=== PATIENT | male | born 1945 | race Caucasian/White ===

== ENCOUNTER → 2017-07-29 13:51 | Outpatient (CLI) | payer MEDICARE, SELFPAY ==
[2017-07-29 16:29] LABS: Prothrombin Time (Protime)PT. 13.6 SECONDS (11.7-14.9)
[2017-07-29 16:30] LABS: Partial Thromboplast Time 30.2 Seconds (24.1-36.2)
[2017-08-06 11:09] LABS: Anti-Cardiolipin Ab, IgG, Qn < 9 GPL U/mL (0-14); Anti-Cardiolipin Ab, IgM, Qn < 9 MPL U/mL (0-12); Antithrombin 3 Function 106 % (75-135); Protein S, Free 77 % (57-157); Protein S, Funtional 101 % (63-140); Protein S, Total 90 % (60-150)
== END ==
PROVIDERS: Family Provider Family Medicine; PCP Family Medicine; Visit Provider Family Medicine
DX: I82.402 Acute embolism and thrombosis of unspecified deep veins of left lower extremity (principal)
CPT/HCPCS: 36415; 81241; 81291; 85300; 85305; 85306; 85610; 85730; 86147

== ENCOUNTER → 2017-10-11 14:28 | Outpatient (CLI) | payer MEDICARE, SELFPAY ==
[2017-10-11 15:26] LABS: Absolute Lymphocyte Count 1.94 X10^3/ul (0.83-4.51); Basophil# 0.04 X10^3/uL; Basophil% 0.4 % (0-1); Eosinophils% 1.1 % (0-5); Hematocrit 53.2 % (40-54); Hemoglobin 17.9 g/dl (13.0-16.5); Lymphocyte # 1.94 X10^3/ul (4.0); Lymphocyte % 20.4 % (19-41); Mean Corp Hgb Conc 33.6 g/gl (32-36); Mean Corpuscular Hgb 30.3 pg (27.0-32.0); Mean Corpuscular Volume 90.2 fL (80-94); Mean Platelet Vol. 10.4 fl (6.2-12.0); Monocyte# 0.43 X10^3/uL; Monocyte% 4.5 % (0-10); Neutrophil # 6.96 X10^3/uL (2.7-7.7); Neutrophil % 73.2 % (47-70); Platelet Count 129 K/mm3 (150-450); RBC Distribution Width CV 14.3 % (11.6-14.6); White Blood Count 9.5 K/mm3 (4.4-11.0)
[2017-10-11 15:39] LABS: POSITIVE COUNT NO; POSITIVE DIFFERENTIAL NO; POSITIVE MORPHOLOGY NO
[2017-10-11 16:02] LABS: AST(SGOT) 14 U/L (15-37); Alanine Aminotransfer ALT/SGPT 31 U/L (16-61); Albumin, Serum 3.6 g/dL (3.2-5.0); Alkaline Phosphatase 87 U/L (45-117); Anion Gap 9 (5-15); BUN 23 mg/dL (7-18); BUN/Creat Ratio 23.2 RATIO (10-20); Calcium,Total 8.4 mg/dL (8.5-10.1); Chloride 110 mmol/L (98-107); Cholesterol 162 mg/dL (200); Creatinine, Serum 0.99 mg/dL (0.70-1.30); EST Glomerular Filtration Rate 78 mL/min (>60); Est Glom Filt Rate - Afr Amer 95 mL/min (>60); Globulin 3.5 g/dL (2.2-4.2); Glucose 157 mg/dL (74-106); High Density Lipoprotein 45 mg/dL; Iron 170 ug/dL (65-175); Protein, Total 7.1 g/dL (6.4-8.2); Sodium Level 145 mmol/L (136-145); Thyroid Stim Hormone (TSH) 2.25 uIU/mL (0.358-3.74); Triglycerides 197 mg/dL; Very Low Density Lipoprotein 39 mg/dL (5-40)
[2017-10-12 08:20] LABS: Vitamin B12 405 pg/mL (211-911); Vitamin D,25 Hydroxy 19.2 ng/mL (29.95-100.01)
== END ==
PROVIDERS: Family Provider Family Medicine; PCP Family Medicine; Visit Provider Family Medicine
DX: R53.81 Other malaise (principal); E11.9 Type 2 diabetes mellitus without complications
CPT/HCPCS: 36415; 80053; 80061; 82306; 82607; 83540; 84403; 84443; 85025

== ENCOUNTER → 2018-07-27 11:50 | Outpatient (CLI) | payer MEDICARE, SELFPAY ==
[2018-07-27 16:15] LABS: Anion Gap 8 (5-15); BUN 22 mg/dL (7-18); BUN/Creat Ratio 22.6 RATIO (10-20); Calcium,Total 8.6 mg/dL (8.5-10.1); Chloride 107 mmol/L (98-107); Cholesterol 164 mg/dL (200); Creatinine, Serum 0.97 mg/dL (0.70-1.30); EST Glomerular Filtration Rate 80 mL/min (>60); Est Glom Filt Rate - Afr Amer 97 mL/min (>60); Glucose 129 mg/dL (74-106); High Density Lipoprotein 34 mg/dL; Potassium 4.2 mmol/L (3.5-5.1); Sodium Level 143 mmol/L (136-145); Triglycerides 225 mg/dL; Very Low Density Lipoprotein 45 mg/dL (5-40)
== END ==
PROVIDERS: Family Provider Family Medicine; PCP Family Medicine; Referring Provider Family Medicine; Visit Provider Family Medicine
DX: I10 Essential (primary) hypertension (principal); E78.5 Hyperlipidemia, unspecified
CPT/HCPCS: 36415; 80048; 80061

== ENCOUNTER → 2018-12-11 15:04 | Outpatient (CLI) | payer MEDICARE, SELFPAY ==
[2018-12-11 17:44] LABS: Anion Gap 9 (5-15); BUN 21 mg/dL (7-18); Calcium,Total 8.8 mg/dL (8.5-10.1); Chloride 111 mmol/L (98-107); Creatinine, Serum 1.05 mg/dL (0.70-1.30); EST Glomerular Filtration Rate 73 mL/min (>60); Est Glom Filt Rate - Afr Amer 89 mL/min (>60); Glucose 173 mg/dL (74-106); Potassium 3.9 mmol/L (3.5-5.1); Sodium Level 145 mmol/L (136-145)
== END ==
PROVIDERS: Family Provider Family Medicine; PCP Family Medicine; Referring Provider Family Medicine; Visit Provider Family Medicine
DX: I10 Essential (primary) hypertension (principal)
CPT/HCPCS: 36415; 80048

== ENCOUNTER 2019-07-25 14:32 | Emergency (ER) | payer MEDICARE, SELFPAY ==
[2019-07-25 14:33] VITALS: BP 140/86; PULSE 104; RESP 20; TEMP 36.4; O2SAT 94; BMI 29.4
--- NOTE | 2019-07-25 14:43 | VDLE_ITS ---
Reason For Study: swelling Procedure LEFT Exam performed in department. CFV is compressible, spontaneous, phasic, The exam was abbreviated due to the COVID 19 competent, and demonstrates normal protocol. augmentation. The exam was diagnostic. POP V is compressible, spontaneous, phasic, A preliminary report was called and/or faxed competent and demonstrates normal to Dr. Jacobsen. augmentation. FV, T/P Trunk, PTV, Peroneal V, Gastroc, and Soleus V are dilated and noncompressible. GSV is dilated and noncompressible in the groin. Interpretation Summary Acute deep vein thrombosis is noted in the left femoral vein. Acute deep vein thrombosis is noted in the left tibio-peroneal trunk. Acute deep vein thrombosis is noted in the left posterior tibial vein. Acute deep vein thrombosis is noted in the left peroneal vein. Acute deep vein thrombosis is noted in the left gastrocnemius vein. Acute deep vein thrombosis is noted in the left soleus vein. The left common femoral vein and popliteal vein are patent, compressible, and competent. Acute superficial thrombophlebitis is noted involving the left great saphenous vein in the left groin. Ordering Physician: Reynaldo Jacobsen Performed By: Feliberto Fontenot, RVT
--- NOTE | 2019-07-25 14:47 | ED.DCSUM_ITS ---
History of Present Illness Chief Complaint: Shortness of Breath Detail of Chief Complaint: Chief complaint is left lower leg extremity Informant: Patient Onset: Days Context: Sudden Onset Timing: Continuous Quality: Pain and swelling Location: Left lower extremity Current Severity: Mild Maximum Severity: Moderate Worsened by: Nothing Relieved by: Nothing Associated Symptoms: Patient shortness of breath is chronic Narrative: Patient is a 73-year-old male seen at primary care physician for diabetic check. He was sent to the emergency department because of shortness of breath and concern for PE. Patient reports history of shortness of breath. His shortness of breath has not changed over the past couple of years. He attributed to old age. He denies pleuritic chest pain or chest pain of any type. He denies f ever, chills or night sweats. He denies rhinorrhea, congestion postnasal drainage. He denies change in smell or taste. He denies sore throat. He denies GI symptoms. He denies urologic symptoms. He is not on an anticoagulant. Prior similar symptoms: No Recent Illness/Hospitalization: No - Past Medical History (1) History of diabetes mellitus Status: Acute Past Medical History - Allergies and Home Meds Allergies/Adverse Reactions: Allergies No Known Allergies Allergy (Verified 07/25/19 14:32) Primary Care Physician: Elias Bledsoe MD [Primary Care Provider] - Prior records reviewed: Yes Surgical History: noncontributory Lives: Alone Smoking Status: Never smoker Alcohol: None Drugs: None Review of Systems General: Denies: Chills, Fever, Malaise, Subjective, Sweats Eyes: Denies: Visual changes - bilaterally ENT: Denies: Rhinorrhea, Sore throat, - Cardiovascular: Denies: Palpitations Respiratory: Reports: Dyspnea, Dyspnea on exertion. Denies: Cough, Sputum, Orthopnea, Paroxysmal nocturnal dyspnea Gastrointestinal: Denies: Abdominal pain, Nausea, Vomiting, Diarrhea, Melena, Hematochezia Genitourinary: Denies: Dysuria, Hematuria, Frequency Musculoskeletal: Reports: Swelling, Extremity Pain. Denies: Myalgias, Arthralgias, Neck pain, Back pain, -, - Skin: Denies: Rash, Wounds Neurological: Denies: Headache, Weakness, Numbness Hematologic: Denies: Easy bruising, Easy bleeding Allergy: Denies: Uticaria, Swelling of the mouth, Swelling of the tongue Physical Exam Vital Signs/Narrative: Vital Signs Temp Pulse Resp BP Pulse Ox 07/25/19 14:33 97.6 F L 104 H 20 H 140/86 H 94 Inital Vital Signs reviewed: Yes General: Well nourished, Well developed, No Acute Distress Head: Normocephalic, Atraumatic Eyes: Perrl, EOMI. Negative for: Pale conjunctiva, Scleral icterus ENT: Moist mucous membranes, No rhinorrhea Neck: Supple, Nontender, No lymphadenopathy, No JVD Cardiovascular: Regular rhythm, No murmurs, Normal S1, Normal S2, Tachycardia Respiratory: No distress, CTA bilaterally, Chest nontender Abdomen: Soft, Nontender, Nondistended, Normal bowel sounds, No masses Rectal: Deferred Back: Nontender, Normal Inspection Extremities: Tenderness, Edema. Negative for: Nontender, No edema Skin: Normal color, No rash, No Trauma. Negative for: Cyanosis, Diaphoresis, Jaundice Neurological: Alert, Oriented x3, Cranial nerves II-XII grossly intact, Normal Strength, Normal Sensation Psychological: Normal affect, Normal Mood Diagnostic/Tx/Re-eval Laboratory Results 07/25/19 07/25/19 14:55 14:55 WBC 11.6 H RBC 5.85 Hgb 17.6 H Hct 54.9 H MCV 93.8 MCH 30.1 MCHC 32.1 RDW Std Deviation 44.9 H RDW Coeff of Marcus 13.2 Plt Count 111 L MPV 10.3 Immature Gran % (Auto) 0.700 Neut % (Auto) 72.0 H Lymph % (Auto) 18.4 L Alexandria % (Auto) 6.5 Eos % (Auto) 1.5 Baso % (Auto) 0.9 Absolute Neuts (auto) 8.3 H Absolute Lymphs (auto) 2.13 Nucleated RBC % 0 Sodium 142 Potassium 3.8 Chloride 109 H Carbon Dioxide 26.0 Anion Gap 7 BUN 26 H Creatinine 1.22 Estim Creat Clear Calc 54.02 Est GFR (MDRD) Af Amer 74 Est GFR (MDRD) Non-Af 61 BUN/Creatinine Ratio 21.3 H Glucose 165 H Calcium 8.7 Function is normal. Venous duplex study reveals a deep venous clot proximal left lower extremity. Will discuss patient's treatment options i.e. Lovenox and Coumadin versus Xarelto versus Eliquis. Patient states he has taken Eliquis in the left and requested prescription for Eliquis. - Medical Decision Making With unilateral leg pain and swelling differential includes DVT versus lymphedema. Since patient has history of chronic dyspnea work-up was not undertaken for d-dimer. ED Disposition - Plan for ED Patient: Disposition: Home or Assisted Living Diagnosis: Deep vein thrombosis (DVT) of left lower extremity Prescriptions: Apixaban [Eliquis] 5 mg PO BID #74 tab Transmission Status: Pending to [facility] Referrals: Elias Bledsoe MD [Primary Care Provider] - 1-2 Weeks
[2019-07-25 15:10] LABS: Absolute Lymphocyte Count 2.13 X10^3/uL (0.83-4.51); Absolute Neutrophil Count 8.3 X10^3/uL (2.0-7.7); Basophil% 0.9 % (0-1); Eosinophil# 0.17 X10^3/uL; Eosinophils% 1.5 % (0-5); Hematocrit 54.9 % (40-54); Hemoglobin 17.6 g/dL (13.0-16.5); Lymphocyte # 2.13 X10^3/ul (4.0); Lymphocyte % 18.4 % (19-41); Mean Corp Hgb Conc 32.1 g/dL (32-36); Mean Corpuscular Hgb 30.1 pg (27.0-32.0); Mean Corpuscular Volume 93.8 fL (80-94); Mean Platelet Vol. 10.3 fl (6.2-12.0); Monocyte# 0.75 X10^3/uL; Monocyte% 6.5 % (0-10); NRBC Flagged by Analyzer 0 % (0-5); Neutrophil # 8.34 X10^3/uL (2.7-7.7); Platelet Count 111 K/mm3 (150-450); RBC Distribution Width CV 13.2 % (11.6-14.6); RBC Distribution Width SD 44.9 fl (35.1-43.9); Red Blood Count 5.85 M/mm3 (4.6-6.2); White Blood Count 11.6 K/mm3 (4.4-11.0)
[2019-07-25 15:19] LABS: Anion Gap 7 (5-15); BUN 26 mg/dL (7-18); BUN/Creat Ratio 21.3 RATIO (10-20); Calcium,Total 8.7 mg/dL (8.5-10.1); Chloride 109 mmol/L (98-107); Creatinine, Serum 1.22 mg/dL (0.70-1.30); EST Glomerular Filtration Rate 61 mL/min (>60); Est Glom Filt Rate - Afr Amer 74 mL/min (>60); Estimated Creatinine Clearance 54.02 ml/min; Glucose 165 mg/dL (74-106); Potassium 3.8 mmol/L (3.5-5.1); Sodium Level 142 mmol/L (136-145)
--- NOTE | 2019-07-25 15:28 | ED.DCSUM_ITS ---
- ER Visit Summary Date of Service: 07/25/19 Chief Complaint: [] History of Present Illness: The patient is a 73 M [] Physical Examination: [] Test Results: [] Emergency Department Course and Treatment: [] Treatment Plan: [] Disposition: [] Impression: [] This note was generated with [employer] dictation software. It may contain incorrect words, spelling, and punctuation that were not noted in review of the chart prior to signing ED Disposition - Plan for ED Patient: Disposition: Home or Assisted Living Diagnosis: Deep vein thrombosis (DVT) of left lower extremity Instructions: ED DVT Prescriptions: Apixaban [Eliquis] 5 mg PO BID #74 tab Transmission Status: Sent to [facility] Referrals: Elias Bledsoe MD [Primary Care Provider] - 1-2 Weeks
[2019-07-25 15:46] VITALS: BP 122/88; PULSE 96; RESP 18; O2SAT 96
[2019-07-25] MEDS: APIXABAN 5 MG TABLET 10 MG PO (15:56)
== END 2019-07-25 15:56 | disposition home or self-care (01) ==
PROVIDERS: Emergency Provider Emergency Medicine; PCP Family Medicine
DX: I82.412 Acute embolism and thrombosis of left femoral vein (principal); I82.442 Acute embolism and thrombosis of left tibial vein; I82.452 Acute embolism and thrombosis of left peroneal vein; I82.462 Acute embolism and thrombosis of left calf muscular vein; E11.9 Type 2 diabetes mellitus without complications; Z79.84 Long term (current) use of oral hypoglycemic drugs
CPT/HCPCS: 80048; 85025; 93971; 99284; A4216

== ENCOUNTER → 2019-10-29 13:49 | Outpatient (CLI) | payer MEDICARE, SELFPAY ==
--- NOTE | 2019-10-29 14:03 | ART_ITS ---
Reason For Study: PVD Procedure A bilateral lower extremity continuous wave Doppler with analog waveform analysis,segmental pressures,and ankle brachial indexes without exercise. Left Segmental Pressures Left brachial= 148mmHg. Left posterior tibial artery = 178mmHg. Left dorsalis pedis artery = 183mmHg. The left dorsalis pedis waveforms are triphasic. The left posterior tibial artery waveforms are triphasic. Right Segmental Pressures Right brachial= 143mmHg. Right posterior tibial artery = 187mmHg. Right dorsalis pedis artery = 174mmHg. The right dorsalis pedis waveforms are triphasic. The right posterior tibial artery waveforms are triphasic. Indices The right ankle brachial index by the dorsalis pedis is 1.18. The right ankle brachial index by the posterior tibial artery is 1.26. The right post exercise ankle brachial index is 1.29. The left ankle brachial index by the dorsalis pedis is 1.24. The left ankle brachial index by the posterior tibial artery is 1.20. The left post exercise ankle brachial index is 1.33. Interpretation Summary Triphasic Doppler waveforms are noted at ankle level bilaterally. Resting ankle-brachial indices are normal bilaterally. The patient ambulated for 3 minutes on a treadmill at 1.8 MPH and a 5% grade, following which ankle pressures augmented bilaterally, which is a normal physiological response. There is no evidence of significant arterial occlusive disease in the lower extremities bilaterally. Ordering Physician: Elias Bledsoe Referring Physician: Elias Bledsoe Performed By: Mena Goetz RVT and Student
== END ==
PROVIDERS: PCP Family Medicine; Referring Provider Family Medicine; Visit Provider Family Medicine
DX: I73.9 Peripheral vascular disease, unspecified (principal)
CPT/HCPCS: 93922

== ENCOUNTER → 2020-05-07 14:57 | Outpatient (CLI) | payer MEDICARE, SELFPAY ==
[2020-02-14 13:07] VITALS: BMI 29.4
[2020-05-07 18:22] LABS: ALB/GLOB Ratio 1.1 RATIO (0.9-2.4); AST(SGOT) 10 U/L (15-37); Alanine Aminotransfer ALT/SGPT 28 U/L (16-61); Albumin, Serum 3.7 g/dL (3.2-5.0); Alkaline Phosphatase 103 U/L (45-117); Anion Gap 7 (5-15); BUN 25 mg/dL (7-18); Calcium,Total 8.8 mg/dL (8.5-10.1); Chloride 107 mmol/L (98-107); Cholesterol 175 mg/dL (200); Creatinine, Serum 1.19 mg/dL (0.70-1.30); EST Glomerular Filtration Rate 63 mL/min (>60); Est Glom Filt Rate - Afr Amer 76 mL/min (>60); Globulin 3.5 g/dL (2.2-4.2); Glucose 198 mg/dL (74-106); High Density Lipoprotein 38 mg/dL; Potassium 3.9 mmol/L (3.5-5.1); Protein, Total 7.2 g/dL (6.4-8.2); Sodium Level 139 mmol/L (136-145); Thyroid Stim Hormone (TSH) 1.92 uIU/mL (0.358-3.74); Triglycerides 196 mg/dL; Very Low Density Lipoprotein 39 mg/dL (5-40)
== END ==
PROVIDERS: PCP Family Medicine; Referring Provider Family Medicine; Visit Provider Family Medicine
DX: E11.9 Type 2 diabetes mellitus without complications (principal)
CPT/HCPCS: 80053; 80061; 84443

== ENCOUNTER → 2020-05-15 12:30 | Outpatient (CLI) | payer MEDICARE, SELFPAY ==
[2020-05-15 11:11] VITALS: BMI 29.1
[2020-05-15 13:13] LABS: Hematocrit 53.2 % (40-54); Hemoglobin 17.4 g/dL (13.0-16.5); Mean Corp Hgb Conc 32.7 g/dL (32-36); Mean Corpuscular Hgb 29.7 pg (27.0-32.0); Mean Corpuscular Volume 90.8 fL (80-94); Mean Platelet Vol. 10.7 fl (6.2-12.0); Platelet Count 190 K/mm3 (150-450); RBC Distribution Width CV 13.4 % (11.6-14.6); RBC Distribution Width SD 44.8 fl (35.1-43.9); Red Blood Count 5.86 M/mm3 (4.6-6.2)
[2020-05-15 13:59] LABS: Vitamin B12 379 pg/mL (211-911)
[2020-05-21 20:07] LABS: Free Kappa Light Chains 21.1 mg/L (3.3-19.4); Free Lambda Light Chains 21.3 mg/L (5.7-26.3)
[2020-05-21 21:56] LABS: Vitamin B1, Thiamine 159.2 nmol/L (66.5-200.0)
== END ==
PROVIDERS: PCP Family Medicine; Referring Provider Nurse Practitioner Family; Visit Provider Nurse Practitioner Family
DX: F32.9 Major depressive disorder, single episode, unspecified (principal); G20 Parkinson's disease; G31.84 Mild cognitive impairment of uncertain or unknown etiology
CPT/HCPCS: 36415; 82607; 82746; 83883; 84425; 85027

== ENCOUNTER → 2020-06-02 14:56 | Outpatient (CLI) | payer MEDICARE, SELFPAY ==
[2020-05-15 11:11] VITALS: BMI 29.1
--- NOTE | 2020-06-02 14:56 | MRI_ITS ---
STUDY: MRI BRAIN WITH AND WITHOUT CONTRAST REASON FOR EXAM: Male, 74 years old. parkinsons, MCI TECHNIQUE: Standardized multiplanar fat and water weighted pulse sequences were obtained. IV 18cc dotarem was administered for the contrast portion of the examination. COMPARISON: None. FINDINGS: Mild atrophy and periventricular white matter ischemic changes without mass effect or restricted diffusion.. Bilateral perivascular spaces are seen within the basal ganglia of no clinical significance. Normal thalami. There is no extra-axial fluid accumulation. Normal flow voids within the major intracranial circulation suggesting patency by spin echo criteria. Normal venous enhancement. There is no enhancing intra-axial or extra-axial abnormality. Normal sella turcica, pituitary gland, infundibular stalk, optic chiasm and hypothalamus. Normal tectal plate and pineal gland. Normal midbrain, naheed and medulla. Normal cerebellum. Normal basal cisterns. Normal bilateral temporal bones. Normal bilateral internal auditory canals. No demonstrated orbital abnormality, within the constraints of a routine brain study. Normal visualized paranasal sinuses. Normal calvarium and skull base. Normal visualized soft tissue structures. Normal visualized upper cervical spine. MRI/Brain W/WO Contrast IMPRESSION: Mild atrophy and periventricular white matter ischemic changes. No evidence for acute infarct. No enhancing lesions following contrast administration Electronically Signed: Rashid Nguyen MD at 17:04 EST , Service support ,
[2020-06-05 20:10] LABS: Albumin 3.7 g/dL (2.9-4.4); Alpha-1-Globulins 0.2 g/dL (0.0-0.4); Alpha-2-Globulins 0.6 g/dL (0.4-1.0); Gamma Globulin 0.8 g/dL (0.4-1.8); Immunoglobulin A 249 mg/dL (61-437); Immunoglobulin G 865 mg/dL (603-1613); Immunoglobulin M 76 mg/dL (15-143); PROEL- TOTAL PROTEIN 6.3 g/dL (6.0-8.5)
== END ==
PROVIDERS: Nurse Practitioner Family; PCP Family Medicine; Referring Provider Psychiatry & Neurology Neurology; Visit Provider Psychiatry & Neurology Neurology
DX: G20 Parkinson's disease (principal); G31.84 Mild cognitive impairment of uncertain or unknown etiology; G62.9 Polyneuropathy, unspecified
CPT/HCPCS: 36415; 70553; 82784; 84165; 86334; 86335; A9575

== ENCOUNTER 2020-06-12 16:54 | Outpatient (RCR) | payer MEDICARE, SELFPAY ==
[2020-05-15 11:11] VITALS: BMI 29.1
[2020-06-12] MEDS: COVID-19 VACC, MRNA(PFIZER)/PF 30 MCG/0.3 ML SYRINGE IM (16:15)
[2020-07-03] MEDS: COVID-19 VACC, MRNA(PFIZER)/PF 30 MCG/0.3 ML SYRINGE IM (15:56)
== END 2020-09-09 23:59 ==
LOC: IMMUN 16:54
PROVIDERS: PCP Family Medicine; Visit Provider Family Medicine
DX: Z23 Encounter for immunization (principal)
CPT/HCPCS: 0001A; 0002A; 91300

== ENCOUNTER → 2020-11-18 15:36 | Outpatient (CLI) | payer MEDICARE, SELFPAY ==
[2020-06-26 14:39] VITALS: BMI 29.1
[2020-11-18 18:39] LABS: Vitamin D,25 Hydroxy 28.1 ng/mL
[2020-11-18 18:51] LABS: AST(SGOT) 10 U/L (15-37); Alanine Aminotransfer ALT/SGPT 13 U/L (16-61); Albumin, Serum 3.5 g/dL (3.2-5.0); Alkaline Phosphatase 84 U/L (45-117); Anion Gap 6 (5-15); BUN 20 mg/dL (7-18); Calcium,Total 8.8 mg/dL (8.5-10.1); Chloride 109 mmol/L (98-107); Creatinine, Serum 1.05 mg/dL (0.70-1.30); EST Glomerular Filtration Rate 73 mL/min (>60); Est Glom Filt Rate - Afr Amer 88 mL/min (>60); Globulin 3.5 g/dL (2.2-4.2); Glucose 201 mg/dL (74-106); Sodium Level 140 mmol/L (136-145); Thyroid Stim Hormone (TSH) 1.32 uIU/mL (0.358-3.74)
== END ==
PROVIDERS: PCP Family Medicine; Referring Provider Family Medicine; Visit Provider Family Medicine
DX: E11.9 Type 2 diabetes mellitus without complications (principal); E55.9 Vitamin D deficiency, unspecified
CPT/HCPCS: 36415; 80053; 82306; 84443

== ENCOUNTER → 2021-03-10 16:34 | Outpatient (CLI) | payer MEDICARE, SELFPAY ==
[2021-03-10 16:52] LABS: Absolute Lymphocyte Count 1.99 X10^3/uL (0.83-4.51); Absolute Neutrophil Count 9.4 X10^3/uL (2.0-7.7); Basophil# 0.09 X10^3/uL; Basophil% 0.7 % (0-1); Eosinophil# 0.11 X10^3/uL; Eosinophils% 0.9 % (0-5); Hematocrit 53.2 % (40-54); Lymphocyte # 1.99 X10^3/ul (0.83-4.51); Lymphocyte % 16.3 % (19-41); Mean Corpuscular Hgb 29.6 pg (27.0-32.0); Mean Corpuscular Volume 92.7 fL (80-94); Monocyte# 0.55 X10^3/uL; Monocyte% 4.5 % (0-10); NRBC Flagged by Analyzer 0 % (0-5); Neutrophil # 9.43 X10^3/uL (2.7-7.7); Neutrophil % 77.2 % (47-70); Platelet Count 184 K/mm3 (150-450); RBC Distribution Width CV 13.5 % (11.6-14.6); RBC Distribution Width SD 45.7 fl (35.1-43.9); Red Blood Count 5.74 M/mm3 (4.6-6.2); White Blood Count 12.2 K/mm3 (4.4-11.0)
[2021-03-10 18:11] LABS: Vitamin D,25 Hydroxy 28.4 ng/mL
[2021-03-10 18:15] LABS: AST(SGOT) 11 U/L (15-37); Alanine Aminotransfer ALT/SGPT 9 U/L (16-61); Albumin, Serum 3.7 g/dL (3.2-5.0); Alkaline Phosphatase 90 U/L (45-117); Anion Gap 9 (5-15); BUN 18 mg/dL (7-18); BUN/Creat Ratio 14.6 RATIO (10-20); Calcium,Total 8.7 mg/dL (8.5-10.1); Chloride 105 mmol/L (98-107); Creatinine, Serum 1.23 mg/dL (0.70-1.30); EST Glomerular Filtration Rate 61 mL/min (>60); Est Glom Filt Rate - Afr Amer 73 mL/min (>60); Globulin 3.7 g/dL (2.2-4.2); Glucose 139 mg/dL (74-106); Protein, Total 7.4 g/dL (6.4-8.2); Sodium Level 140 mmol/L (136-145); Thyroid Stim Hormone (TSH) 0.97 uIU/mL (0.358-3.74)
== END ==
PROVIDERS: PCP Family Medicine Geriatric Medicine; Visit Provider Family Medicine Geriatric Medicine
DX: E55.9 Vitamin D deficiency, unspecified (principal); R53.83 Other fatigue
CPT/HCPCS: 36415; 80053; 82306; 84443; 85025

== ENCOUNTER → 2022-04-20 | Outpatient (CLI) | payer MEDICARE, SELFPAY ==
--- NOTE | 2022-04-20 15:07 | ART_ITS ---
Reason For Study: Cyanosis Procedure A bilateral lower extremity continuous wave Doppler with analog waveform analysis and ankle brachial indexes. Left Segmental Pressures Left brachial= 113mmHg. Left posterior tibial artery = 143mmHg. Left dorsalis pedis artery = 166mmHg. Left digit = >254 mmHg. The left posterior tibial artery waveforms are triphasic. The left dorsalis pedis waveforms are triphasic. Right Segmental Pressures Right brachial= 120mmHg. Right posterior tibial artery = 168mmHg. Right dorsalis pedis artery = 139mmHg. Right digit = >254 mmHg. The right posterior tibial artery waveforms are triphasic. The right dorsalis pedis waveforms are triphasic. Indices The right ankle brachial index by the posterior tibial artery is 1.40. The right ankle brachial index by the dorsalis pedis is 1.16. The right digital-brachial index is N/C. The left ankle brachial index by the posterior tibial artery is 1.19. The left ankle brachial index by the dorsalis pedis is 1.38. The left digital-brachial index is N/C. VL/Ankle Brachial Index Interpretation Summary Triphasic Doppler waveforms are noted at ankle level bilaterally. Pulse-volume recordings appear diminished at digital level on the left, but satisfactory at digital level on t he right and at ankle level bilaterally. Resting ankle-brachial indices are normal bilaterally. Digit al-brachial indices could not be determined on either side due to the non-compressibility of the va sculature at ankle level bilaterally. Arterial flow appears normal at ankle level bilaterally. There is evidence of a rterial calcification at digital level bilaterally, which precludes quantification of arterial flow. Ordering Physician: Woodrow Chappell Referring Physician: Juarez Bledsoe MD Performed By: Alberto Grigsby RVT
== END | disposition home or self-care (01) ==
LOC: CVS 15:06
PROVIDERS: PCP Family Medicine; Referring Provider Psychiatry & Neurology Neurology; Visit Provider Psychiatry & Neurology Neurology
DX: I73.9 Peripheral vascular disease, unspecified (principal)
CPT/HCPCS: 93922

== ENCOUNTER → 2022-06-02 | Outpatient (CLI) | payer MEDICARE, SELFPAY ==
[2022-06-02 10:16] LABS: Hematocrit 50.3 % (40-54); Hemoglobin 16.4 g/dL (13.0-16.5); Mean Corp Hgb Conc 32.6 g/dL (32-36); Mean Platelet Vol. 10.6 fl (6.2-12.0); Platelet Count 191 K/mm3 (150-450); RBC Distribution Width CV 14.2 % (11.6-14.6); RBC Distribution Width SD 47.8 fl (35.1-43.9); Red Blood Count 5.47 M/mm3 (4.6-6.2); White Blood Count 10.5 K/mm3 (4.4-11.0)
[2022-06-02 11:03] LABS: AST(SGOT) 12 U/L (15-37); Alanine Aminotransfer ALT/SGPT 9 U/L (16-61); Albumin, Serum 3.5 g/dL (3.2-5.0); Alkaline Phosphatase 93 U/L (45-117); Anion Gap 7 (5-15); BUN 26 mg/dL (7-18); BUN/Creat Ratio 20.3 RATIO (10-20); Calcium,Total 8.7 mg/dL (8.5-10.1); Chloride 106 mmol/L (98-107); Cholesterol 175 mg/dL (200); Creatinine, Serum 1.28 mg/dL (0.70-1.30); EST Glomerular Filtration Rate 58 mL/min (>60); Est Glom Filt Rate - Afr Amer 70 mL/min (>60); Globulin 3.5 g/dL (2.2-4.2); Glucose 163 mg/dL (74-106); High Density Lipoprotein 36 mg/dL; PSA,Total- Diagnostic 0.23 ng/mL (0.0-4.0); Potassium 3.8 mmol/L (3.5-5.1); Sodium Level 141 mmol/L (136-145); Triglycerides 215 mg/dL; Very Low Density Lipoprotein 43 mg/dL (5-40)
[2022-06-04 15:57] LABS: Vitamin D 1,25-Dihydroxy 36.4 pg/mL (24.8-81.5)
== END | disposition home or self-care (01) ==
LOC: MTLAB 08:57
PROVIDERS: PCP Family Medicine; Referring Provider Psychiatry & Neurology Neurology; Visit Provider Psychiatry & Neurology Neurology
DX: R35.0 Frequency of micturition (principal); G20 Parkinson's disease; I73.9 Peripheral vascular disease, unspecified; I95.1 Orthostatic hypotension; G31.84 Mild cognitive impairment of uncertain or unknown etiology; I10 Essential (primary) hypertension; E55.9 Vitamin D deficiency, unspecified
CPT/HCPCS: 36415; 80053; 80061; 82652; 84153; 85027

== ENCOUNTER 2023-09-15 12:45 | Outpatient (CLI) | payer MEDICARE, SELFPAY ==
--- NOTE | 2023-09-15 12:50 | VDLE_ITS ---
Reason For Study: Bilateral leg swelling RIGHT LEFT CFV is compressible, spontaneous, phasic, CFV is compressible, spontaneous, phasic, competent and demonstrates normal competent, and demonstrates normal augmentation. augmentation. FV is compressible, spontaneous, phasic, FV is compressible, spontaneous, phasic, competent and demonstrates normal competent and demonstrates normal augmentation. augmentation. POP V is compressible, spontaneous, phasic, POP V is compressible, spontaneous, phasic, competent and demonstrates normal competent and demonstrates normal augmentation. augmentation. T/P Trunk is compressible. T/P Trunk is compressible. PTV is compressible. PTV is compressible. RT PerV is compressible. LT PerV is compressible. SFJ is competent and measures 0.91 x 0.92 cm. SFJ is competent and measures 0.79 x 0.74 cm. GSV proximal thigh measures 0.67 x 0.70 cm. GSV proximal thigh measures 0.37 x 0.37 cm. GSV at knee measures 0.37 x 0.36 cm. GSV at knee measures 0.25 x 0.26 cm. GSV INCOMPETENT throughout for greater than GSV INCOMPETENT throughout for greater than 0.5 seconds. 0.5 seconds. SSV proximal calf is INCOMPETENT for greater ASV proximal thigh is INCOMPETENT for greater than 0.5 seconds and measures 0.27 x 0.28 cm. than 0.5 seconds and measures 0.24 x 0.24 cm. Procedure ASV from junction is INCOMPETENT for greater This is a venous duplex using B-mode, color than 0.5 seconds and measures 0.34 x 0.36 cm. flow and spectral Doppler. SSV proximal calf is competent and measures Exam performed in department. 0.29 x 0.29 cm. Patient was scanned in reverse Trendelenburg position during reflux assessment. VL/Venous Duplex US - Josh Extrem Interpretation Summary Deep veins of the bilateral lower extremities are patent and compressible segme ntally. There is no evidence of bilateral lower extremity deep vein thrombosis. The bilateral great saphenous veins appear patent and compressible segmentally. Positive for reflux in the right great saphenous vein throughout, small sapheno us vein Positive for reflux in the left great saphenous vein throughout, accessory saph enous veins Ordering Physician: Gypsy Blanchard Referring Physician: Ladi Pizarro Performed By: Mena Goetz RVT and Student
== END 2023-09-15 23:59 | disposition home or self-care (01) ==
PROVIDERS: PCP Family Medicine; Referring Provider Physician Assistant; Visit Provider Physician Assistant
DX: I73.9 Peripheral vascular disease, unspecified (principal); M79.89 Other specified soft tissue disorders
CPT/HCPCS: 93970

== ENCOUNTER → 2024-02-27 | Outpatient (CLI) | payer MEDICARE, SELFPAY ==
[2024-02-27 17:29] LABS: Hematocrit 49.8 % (40-54); Hemoglobin 15.8 g/dL (13.0-16.5); Mean Corp Hgb Conc 31.7 g/dL (32-36); Mean Corpuscular Hgb 28.9 pg (27.0-32.0); Mean Platelet Vol. 10.7 fl (6.2-12.0); Platelet Count 204 K/mm3 (150-450); RBC Distribution Width CV 13.8 % (11.6-14.6); RBC Distribution Width SD 46.4 fl (35.1-43.9); Red Blood Count 5.47 M/mm3 (4.6-6.2); White Blood Count 9.5 K/mm3 (4.4-11.0)
[2024-02-27 18:46] LABS: ALB/GLOB Ratio 1.2 RATIO (0.9-2.4); AST(SGOT) 10 U/L (15-37); Alanine Aminotransfer ALT/SGPT 17 U/L (16-61); Albumin, Serum 3.8 g/dL (3.2-5.0); Alkaline Phosphatase 98 U/L (45-117); Anion Gap 4 (5-15); BUN 29 mg/dL (7-18); BUN/Creat Ratio 15.9 RATIO (10-20); Calcium,Total 9.1 mg/dL (8.5-10.1); Chloride 110 mmol/L (98-107); Creatinine, Serum 1.82 mg/dL (0.70-1.30); EST Glomerular Filtration Rate 38 mL/min (>60); Est Glom Filt Rate - Afr Amer 46 mL/min (>60); Globulin 3.2 g/dL (2.2-4.2); Glucose 116 mg/dL (74-106); PSA,Total - Annual Screen 0.26 ng/mL (0.00-4.00); Potassium 4.2 mmol/L (3.5-5.1); Sodium Level 144 mmol/L (136-145)
== END | disposition home or self-care (01) ==
PROVIDERS: PCP Family Medicine; Referring Provider Psychiatry & Neurology Neurology; Visit Provider Psychiatry & Neurology Neurology
DX: G62.9 Polyneuropathy, unspecified (principal); G20.A2 Parkinson's disease without dyskinesia, with fluctuations; Z86.39 Personal history of other endocrine, nutritional and metabolic disease; Z12.5 Encounter for screening for malignant neoplasm of prostate
CPT/HCPCS: 36415; 80053; 84153; 84443; 85027; G0103

== ENCOUNTER → 2024-03-08 | Outpatient (CLI) | payer MEDICARE, SELFPAY ==
[2024-03-08 17:59] LABS: Anion Gap 7 (5-15); BUN 29 mg/dL (7-18); BUN/Creat Ratio 21.5 RATIO (10-20); Calcium,Total 9.5 mg/dL (8.5-10.1); Chloride 106 mmol/L (98-107); Creatinine, Serum 1.35 mg/dL (0.70-1.30); EST Glomerular Filtration Rate 54 mL/min (>60); Est Glom Filt Rate - Afr Amer 65 mL/min (>60); Glucose 173 mg/dL (74-106); Sodium Level 142 mmol/L (136-145)
== END | disposition home or self-care (01) ==
LOC: MTLAB 14:42
PROVIDERS: PCP Family Medicine; Referring Provider Psychiatry & Neurology Neurology; Visit Provider Psychiatry & Neurology Neurology
DX: G20.A2 Parkinson's disease without dyskinesia, with fluctuations (principal)
CPT/HCPCS: 36415; 80048

== ENCOUNTER → 2024-03-29 | Outpatient (CLI) | payer MEDICARE, SELFPAY ==
[2024-03-29 15:45] LABS: Anion Gap 5 (5-15); BUN 30 mg/dL (7-18); BUN/Creat Ratio 23.3 RATIO (10-20); Calcium,Total 9.5 mg/dL (8.5-10.1); Chloride 109 mmol/L (98-107); Creatinine, Serum 1.29 mg/dL (0.70-1.30); EST Glomerular Filtration Rate 57 mL/min (>60); Est Glom Filt Rate - Afr Amer 69 mL/min (>60); Glucose 170 mg/dL (74-106); Potassium 4.3 mmol/L (3.5-5.1); Sodium Level 143 mmol/L (136-145)
== END | disposition home or self-care (01) ==
LOC: MTLAB 12:54
PROVIDERS: Psychiatry & Neurology Neurology; PCP Family Medicine; Referring Provider Family Medicine; Visit Provider Family Medicine
DX: N28.9 Disorder of kidney and ureter, unspecified (principal)
CPT/HCPCS: 36415; 80048

== ENCOUNTER 2024-08-14 16:30 | Outpatient (RCR) | payer MEDICARE, SELFPAY ==
--- NOTE | 2024-06-26 13:15 | HP.PTEVAL ---
Patient's Visit Information Visit Information Visit Information: NATO RUTHERFORD is a 78 year old M referred to Physical Therapy by Dr. Woodrow Chappell MD with a diagnosis of PD. Date of Evaluation: 06/26/24 Physical Therapist: JERI Link Visit Plan Frequency: 2x /Week Duration: 3 Months Plan: 2X/ week for 8-12 weeks for gait training, functional balance, postural exercises, dual tasking with HEP. Encouraged pt to use rollator or AD due to fall risk. Pt will bring his cane in next visit. HEP: walk with more heel to toe gait pattern Subjective Subjective: Pt was dx with PD 2 years ago but he thinks that he has had it before then. He struggles with veering and some unsteadiness. He has fallen down a few times and a cane helps but he does not use it often per his Lynn. She reports that a cane helps secure him from a fall. He has stairs and home but moved him to the downstairs because of the couple of falls. He struggles to get out of a chair and struggles to get out on first attempt. They have devices to help pull him up out of the bed and from sit to stand. They are trying to get the house together so he can stay home as long as he can. He struggles rolling over in bed and does not move around a lot at night. He struggles to get things up off the floor, car transfers, and he has bars up in the shower and he has to step and over tub base to get in the shower. Pt likes to watch TV. He does not exercise or go for walks. Pain L shoulder: Pain Intensity (Out of 10): 8 R hip pain: Pain Intensity (Out of 10): 6 Objective Objective: Gait: walks with shorter stride and decreased heel to toe gait pattern. No arm swing. Becomes unsteady if looks other than straight ahead. FW trunk. Occ catch toe if not reminded to walk with heel to toe gait pattern. Veering present with gait. Had pt use the rollator and he was able to walk with much greater step length and speed with less catching of his toe but I feel the arm rails were too short and caused him to lean to far into flexion with gait. LE MMT: R hip flex 4-/5 and L 4-/5 knee ext B 4/5 Knee flex B 4/5 Pt is able to heel and toe raise B with UE support Sit to stand: pt needed multiple cues on how to sit to stand and get weight FW. Once instructed in how to weight shift FW he was able to get up 3X in a row on first attempt using B hand rails Seated opp arm and leg X 8 on each side Standing opp arm and leg X 2 on each side and then reverts back to same side FGA 10 Balance/Special Test Scores Functional Gait Assessment Score: 10 % Disability: 66.6700 Lower Extremity Functional Score: 39 Goals Goal 1:: I HEP Goal Time Frame: 8-12 Weeks Goal 2:: Pt to improve balance (FGA 10 at eval. Did discuss the idea that he is at risk for falls and should use an AD) Goal Time Frame: 8-12 Weeks Goal 3:: Be able to walk with more upright posture, bigger strides and more heel to toe gait pattern Goal Time Frame: 8-12 Weeks Goal 4:: Be able to complete X 10 on each side standing opp arm and leg to work on motor planning and dual tasking Goal Time Frame: 8-12 Weeks Rehabilitation Potential Rehabilitation Potential: Good Anticipated Interventions Patient/Client Instruction: Educate patient on: Condition and Plan of Care For the Purpose of:: To improve muscle performance and motor function, To improve ability to perform ADL's, To increase tolerance to activity/condition/position, To improve performance and independence with ADL's, To decrease level of supervision to perform tasks, To improve ability of physical actions for home/community/work/leisure, To improve gait and locomotor functions, To improve health of tissue, To increase flexibility/ROM, To improve endurance, To improve balance and To improve safety with gait Therapeutic Exercise to Include: Strength training, Endurance training, Balance training, Coordination, Body mechanics, Postural training, Neuromotor development, Active ROM, Dynamic Lumbar Stabilization and Scapular Strength/Stabilization For the Purpose of:: To decrease pain, To increase ROM, To improve nutrient delivery to tissue, To increase oxygenation perfusion, To improve muscle performance and motor function, To improve ability to perform ADL's, To increase tolerance to activity/condition/position, To improve performance and independence with ADL's, To decrease level of supervision to perform tasks, To improve ability of physical actions for home/community/work/leisure, To improve gait and locomotor functions, To improve health of tissue, To decrease soft tissue restriction, To increase flexibility/ROM, To improve endurance and To improve balance Functional Training to Include: Gait training For the Purpose of:: To improve gait and locomotor functions Text: Thank you for the opportunity to evaluate your patient. For Medicare and Medicare HMO plans, please review the plan of care and approve it. It will need to be FAXED BACK to us at [phone] for Medicare purposes. For Medicare only, by signing this I certify the plan of care. Please let me know if there are questions or concerns regarding this plan of care. Physician Signature: Date:
--- NOTE | 2024-07-25 17:37 | HP.PTREVAL_ITS ---
Re-Evaluation Intro: Dr. Woodrow Chappell MD, It has been my pleasure to treat NATO RUTHERFORD over the last 8 visits for PD. Please see the progress note below for an update on the physical therapy plan of care! Subjective Subjective: Pt fell yesterday falling down 2 garage steps. He missed the step and fell. He feels that he has made progress. He is not doing well today due to the fall yesterday. would like him to use a walker when therapist suggested it. She would also like HEP that she can do with him at home. Objective Objective/Function: Sit to stand: needs to use his arms to get out of the chair and had retro LOB once standing Standing opp arm and leg FGA 10 Gait: walks with short strides and decrease heel to toe holding onto his SBQC and even kicking his cane at times The pt was able to walk around the entire building using the rollator with normal stride length continuous steps without LOB or veering. He did not turn his head with gait. Plan Plan Plan: Add walking with the rollator turning his head, add walking BW with using bigger stride length, sit to stand to balance (he tends to have some retro LOB once standing) 2X/ week for 8-12 weeks for gait training, functional balance, postural exercises, dual tasking with HEP. Encouraged pt to use rollator or AD due to fall risk. Pt will bring his cane in next visit. Balance/Gait/Functional tests Balance/Special Test Scores Functional Gait Assessment Score: 10 % Disability: 66.6700 Lower Extremity Functional Score: 33 Goals Goals Goal 1:: I HEP Goal Time Frame: 8-12 Weeks Goal Progress: Progressing Goal 2:: Pt to improve balance (FGA 10 at [facility]. Did discuss the idea that he is at risk for falls and should use an AD) Goal Time Frame: 8-12 Weeks Goal 3:: Be able to walk with more upright posture, bigger strides and more heel to toe gait pattern Goal Time Frame: 8-12 Weeks Goal Progress: Progressing Goal 4:: Be able to complete X 10 on each side standing opp arm and leg to work on motor planning and dual tasking Goal Time Frame: 8-12 Weeks Anticipated Interventions Anticipated Interventions Patient/Client Instruction: Educate patient on: Condition and Plan of Care For the Purpose of:: To improve muscle performance and motor function, To improve ability to perform ADL's, To increase tolerance to activity/condition/position, To improve performance and independence with ADL's, To decrease level of supervision to perform tasks, To improve ability of physical actions for home/community/work/leisure, To improve gait and locomotor functions, To improve health of tissue, To increase flexibility/ROM, To improve endurance, To improve balance and To improve safety with gait Therapeutic Exercise to Include: Strength training, Endurance training, Balance training, Coordination, Body mechanics, Postural training, Neuromotor development, Active ROM, Dynamic Lumbar Stabilization and Scapular Strength/Stabilization For the Purpose of:: To decrease pain, To increase ROM, To improve nutrient delivery to tissue, To increase oxygenation perfusion, To improve muscle performance and motor function, To improve ability to perform ADL's, To increase tolerance to activity/condition/position, To improve performance and independence with ADL's, To decrease level of supervision to perform tasks, To improve ability of physical actions for home/community/work/leisure, To improve gait and locomotor functions, To improve health of tissue, To decrease soft tissue restriction, To increase flexibility/ROM, To improve endurance and To improve balance Functional Training to Include: Gait training For the Purpose of:: To improve gait and locomotor functions Re-Evaluation Ending Re-evaluation ending: Please do not hesitate to contact me at [phone] by phone or if you have questions or concerns regarding this new plan of care! Sincerely, JERI Link
--- NOTE | 2025-01-01 08:30 | HP.PT.NRP ---
Patient Information Patient Information: NATO RUTHERFORD was seen in my office for initial evaluation on 06/26/24. The following Plan of Care was established for this patient: POC Established Initial Frequency: 2x /Week Initial Duration: 3 Months Anticipated Interventions Patient/Client Instruction: Educate patient on: Condition and Plan of Care For the Purpose of:: To improve muscle performance and motor function, To improve ability to perform ADL's, To increase tolerance to activity/condition/position, To improve performance and independence with ADL's, To decrease level of supervision to perform tasks, To improve ability of physical actions for home/community/work/leisure, To improve gait and locomotor functions, To improve health of tissue, To increase flexibility/ROM, To improve endurance, To improve balance and To improve safety with gait Therapeutic Exercise to Include: Strength training, Endurance training, Balance training, Coordination, Body mechanics, Postural training, Neuromotor development, Active ROM, Dynamic Lumbar Stabilization and Scapular Strength/Stabilization For the Purpose of:: To decrease pain, To increase ROM, To improve nutrient delivery to tissue, To increase oxygenation perfusion, To improve muscle performance and motor function, To improve ability to perform ADL's, To increase tolerance to activity/condition/position, To improve performance and independence with ADL's, To decrease level of supervision to perform tasks, To improve ability of physical actions for home/community/work/leisure, To improve gait and locomotor functions, To improve health of tissue, To decrease soft tissue restriction, To increase flexibility/ROM, To improve endurance and To improve balance Functional Training to Include: Gait training For the Purpose of:: To improve gait and locomotor functions Last Seen Last Seen: This patient was last seen in our office 08/14/24. Pertinent comments regarding their Physical therapy will appear below: [facility] PT At this point I will be discontinuing this patient from physical therapy. I would be happy to see this patient again in the future if found appropriate by the physician. Thank you! Ni Robledo, JERI Balance/Gait/Functional tests Balance/Special Test Scores Functional Gait Assessment Score: 10 % Disability: 66.6700 Lower Extremity Functional Score: 33
== END 2024-08-14 19:00 | disposition home or self-care (01) ==
LOC: PT 16:30
PROVIDERS: PCP Family Medicine; Referring Provider Psychiatry & Neurology Neurology; Visit Provider Psychiatry & Neurology Neurology
DX: G20.A2 Parkinson's disease without dyskinesia, with fluctuations (principal)
CPT/HCPCS: 97110; 97116; 97162; 97530

== ENCOUNTER 2024-08-20 12:09 | Emergency (ER) | payer MEDICARE, SELFPAY ==
[2024-08-20 12:10] VITALS: BP 164/85; PULSE 76; RESP 14; TEMP 36.6; O2SAT 100; BMI 26.0
[2024-08-20 12:44] VITALS: O2SAT 93
--- NOTE | 2024-08-20 13:11 | RAD_ITS ---
PROCEDURE: CHEST PA AND LATERAL 08/20/2024 REASON FOR EXAM: CHEST PAIN TECHNIQUE: Frontal and lateral views of the chest. COMPARISON: No prior study available for comparison. FINDINGS: Hardware: EKG electrodes are seen. Heart: The heart is nonenlarged. Tortuosity of the descending thoracic aorta. Mediastinum: Unremarkable Lungs: The lungs are clear. Bones: Degenerative changes are identified within the thoracic spine. RAD/Chest PA and Lateral IMPRESSION: NO ACUTE FINDINGS. Reading Location: [facility]
--- NOTE | 2024-08-20 13:11 | EKG12_ITS ---
Test Reason : CHEST PAIN Blood Pressure : */* mmHG Vent. Rate : 80 BPM Atrial Rate : 80 BPM P-R Int : 170 ms QRS Dur : 128 ms QT Int : 400 ms P-R-T Axes : 29 23 3 degrees QTcB Int : 461 ms Normal sinus rhythm Right bundle branch block Abnormal ECG Confirmed by IVON MARTINEZ, GODWIN ([id number]), clinical editor JASON LANCASTER ([id number]) on 08/21/2024 1:27:17 PM Referred By: Confirmed By: GODWIN DEL VALLE MD
[2024-08-20 13:25] LABS: Absolute Lymphocyte Count 2.45 X10^3/uL (0.83-4.51); Absolute Neutrophil Count 7.3 X10^3/uL (2.0-7.7); Basophil# 0.09 X10^3/uL; Basophil% 0.8 % (0-1); Eosinophil# 0.23 X10^3/uL; Eosinophils% 2.2 % (0-5); Hematocrit 43.6 % (40-54); Hemoglobin 14.7 g/dL (13.0-16.5); Lymphocyte # 2.45 X10^3/ul (0.83-4.51); Mean Corp Hgb Conc 33.7 g/dL (32-36); Mean Corpuscular Hgb 30.2 pg (27.0-32.0); Mean Corpuscular Volume 89.7 fL (80-94); Mean Platelet Vol. 10.7 fl (6.2-12.0); Monocyte# 0.59 X10^3/uL; Monocyte% 5.5 % (0-10); NRBC Flagged by Analyzer 0 % (0-5); Neutrophil # 7.26 X10^3/uL (2.7-7.7); Neutrophil % 68.1 % (47-70); Platelet Count 202 K/mm3 (150-450); RBC Distribution Width CV 13.2 % (11.6-14.6); Red Blood Count 4.86 M/mm3 (4.6-6.2); White Blood Count 10.7 K/mm3 (4.4-11.0)
[2024-08-20] MEDS: 0.9% Normal Saline (1000mL) 1,000 ML 999 ML IV (13:35)
[2024-08-20 13:36] LABS: International Normalized Ratio 1.1; Prothrombin Time (Protime)PT. 14.3 SECONDS (11.7-14.9)
[2024-08-20 13:37] LABS: Partial Thromboplast Time 28.6 Seconds (24.1-36.2)
[2024-08-20 13:52] LABS: Anion Gap 14 (5-15); BUN 27 mg/dL (4-19); BUN/Creat Ratio 20.1 RATIO (10-20); Calcium,Total 9.5 mg/dL (7.6-11.0); Carbon Dioxide 24.6 mmol/L (21.0-32.0); Chloride 107 mmol/L (98-108); Creatinine, Serum 1.35 mg/dL (0.70-1.20); EST Glomerular Filtration Rate 53 (>60); Estimated Creatinine Clearance 43.64 ml/min (50-250); Glucose 186 mg/dL (70-99); Potassium 3.8 mmol/L (3.3-5.1); Pro- Brain NATRIURETIC PEPTIDE 488 pg/mL (<=1800); Sodium Level 145 mmol/L (133-145); Troponin T High Sensitivity 36 ng/L (<=22)
--- NOTE | 2024-08-20 13:56 | EX.ED.DYSGE1 ---
HPI History of Present Illness Chief Complaint: Shortness of Breath Narrative Narrative: Patient is a 78-year-old male with past medical history of DVT on Eliquis, type 2 diabetes, depression, Parkinson's disease, hypertension who presented to the emergency department with a chief complaint of shortness of breath. Patient states that he woke up in the [place] short of breath and states that he did not want a wake anybody up therefore he took his prescribed diazepam which she was able to fall back asleep. He states that he woke up again this morning and was had very similar symptoms therefore he called EMS to have him brought here for further evaluation management. Patient states that has been compliant with his medications not missing any doses. [facility] Medical History Fatigue Major depression single episode, in partial remission Depression DVT (deep venous thrombosis) Type 2 diabetes mellitus Hyperlipidemia Essential hypertension Home Medications ?Medication ?Instructions ?Recorded ?Last Taken ?Type apixaban 5 mg tablet 5 mg PO BID #74 tabs 07/25/19 Unknown Rx tamsulosin 0.4 mg capsule 1 tab PO DAILY 07/25/19 Unknown History finasteride 5 mg tablet 5 mg PO DAILY 05/15/20 Unknown History cholecalciferol (vitamin D3) 25 2,000 unit PO DAILY 05/19/21 Unknown History mcg (1,000 unit) tablet metformin 500 mg tablet,extended 1,000 mg PO DAILY 04/13/22 Unknown History release 24 hr gabapentin 600 mg tablet 600 mg PO QHS #30 tabs 03/12/24 Unknown Rx carbidopa 25 mg-levodopa 100 mg 2 tab PO TID #180 tabs 04/05/24 Unknown Rx tablet (Sinemet) fludrocortisone 0.1 mg tablet 0.1 mg PO QAM #30 tabs 04/05/24 Unknown Rx diazepam 5 mg tablet 2.5 mg (1/2 x 5 mg) PO BID PRN 06/19/24 Unknown Rx anxiety #30 tabs venlafaxine 150 mg 150 mg PO QAM 90 days #90 caps 06/19/24 Unknown Rx capsule,extended release 24 hr venlafaxine 75 mg capsule,extended 75 mg PO QHS 90 days #90 caps 06/19/24 Unknown Rx release 24 hr Allergy/AdvReac Type Severity Reaction Status Date / Time Btiebok-BTB-ZhH Reductase AdvReac Intermediate Nausea Verified 08/20/24 12:10 Inhibitor (Eskunms-Lps-Toa Reductase Inhibitor) Family History Father Parkinson's disease Other Arthritis Blood Clots Depression Diabetes Surgical History History of inguinal hernia repair, bilateral Social History Smoking Status: Former smoker Tobacco: How many years used: 30 Electronic Cigarette Use: not used second hand exposure: Yes (Did smoke in the house ) alcohol intake: former substance use type: does not use shabana/yarsanism: Religious seatbelt use: always ROS ROS ED ROS Narrative Constitutional: Denies fevers, chills, headaches malaise, dizziness Eyes: Denies change in vision double vision blurry vision Cardiovascular: Denies chest pain or palpitations Respiratory: Complains of shortness of breath as noted above denies coughing wheezing Abdomen: Denies abdominal pain nausea vomit diarrhea : Denies urinary symptoms Neurological: Denies numbness, weakness, tingling Musculoskeletal: Denies back pain Skin: Denies rashes or lesions EXAM Physical Exam Narrative Exam Narrative: General: Patient lying in bed rest comfortably did not appear to be acute distress Head: Atraumatic, normocephalic Eyes: PERRL bilaterally, EOMI bilaterally, no conjunctival injection noted Neck: Soft, supple, trachea midline Cardiovascular: Regular rate and rhythm no murmurs gallops rubs noted Respiratory: Clear to auscultation bilaterally Abdomen: Soft, nondistended, nontender to palpation Extremities: +5/5 strength noted in the upper and lower extremities, radial pulse +2/4 in the bilateral extremities Neurological: Patient follow commands knew that he was at [facility] years 2024 Skin: Head, dry, tact no rashes or lesions noted Const Vital Signs: 08/20/24 12:10 08/20/24 12:44 08/20/24 13:11 Temperature 97.8 F Temperature Source Oral Pulse Rate 76 Respiratory Rate 14 Respiratory Effort Normal Respiratory Depth Normal Respiratory Pattern Normal Blood Pressure 164/85 H Blood Pressure Mean 111 Pulse Ox 100 Oxygen Delivery Method Room Air Room Air Room Air 08/20/24 14:10 Temperature Temperature Source Pulse Rate 82 Respiratory Rate 15 Respiratory Effort Respiratory Depth Respiratory Pattern Blood Pressure Blood Pressure Mean Pulse Ox 98 Oxygen Delivery Method Room Air MDM MDM MDM Narrative Medical decision making narrative: Patient is a 78-year-old male who presented to the emerged part with a chief complaint of shortness of breath. On the differential diagnose includes but not limited to CHF, ACS, pneumonia, pneumothorax, PE although feel this less likely as he is chronically anticoagulated on Eliquis already, panic attack. Once workup is obtained reviewed he will be reevaluated. Patient CBC was reviewed showed no evidence leukocytosis white blood count normal at 10.7, he was 14.7, platelet count noted to be normal at 202. Patient INR normal at 1.1, PT of 14.3. Patient's sodium normal 145, potassium low at 3.8, creatinine was 1.35 which is roughly around his baseline, anion gap normal at 14. Patient's troponin was 36 with a delta troponin obtained at 29. Patient's EKG reviewed and showed sinus with evidence of right bundle branch block . Patient's proBNP was normal at 488. Patient's chest x-ray was reviewed by myself and by radiology showed no acute findings. Patient ambulated well in the Emergency Department no tachycardia no hypoxia that he feels better and he would like to go home at this point time. Patient was advised to follow-up his primary care physician return with worsening symptoms or concerns. For member bedside is also agreeable this plan all course concerns answered is discharged home in stable condition. Lab Data Labs: Laboratory Results - last 24 hr 08/20/24 08/20/24 12:15 15:06 WBC 10.7 RBC 4.86 Hgb 14.7 Hct 43.6 MCV 89.7 MCH 30.2 MCHC 33.7 RDW Std Deviation 43.0 RDW Coeff of Marcus 13.2 Plt Count 202 MPV 10.7 Immature Gran % (Auto) 0.400 Neut % (Auto) 68.1 Lymph % (Auto) 23.0 [place] % (Auto) 5.5 Eos % (Auto) 2.2 Baso % (Auto) 0.8 Absolute Neuts (auto) 7.3 Absolute Lymphs (auto) 2.45 Nucleated RBC % 0 PT 14.3 INR 1.1 APTT 28.6 Sodium 145 Potassium 3.8 Chloride 107 Carbon Dioxide 24.6 Anion Gap 14 BUN 27 H Creatinine 1.35 H Estim Creat Clear Calc 43.64 L Est GFR (MDRD) Non-Af 53 L BUN/Creatinine Ratio 20.1 H Glucose 186 H Calcium 9.5 Troponin T High Sens 36 H Troponin T Hi Sens 2 Hr 29 H NT pro BNP II 488 Radiography Diagnostic Testing: Clinical Impression(s) from Imaging Studies Chest X-Ray 08/20/24 13:11 IMPRESSION: NO ACUTE FINDINGS. Reading Location: [place] [address] Discharge Plan Triage Chief Complaint: Shortness of Breath ED Provider: Wang Poon Dx/Rx/DC Orders Clinical Impression: Shortness of breath Prescriptions: No Action finasteride 5 mg tablet 5 mg PO DAILY Patient Comments: TAKE 1 TABLET BY MOUTH EVERY DAY AT BEDTIME cholecalciferol (vitamin D3) 25 mcg (1,000 unit) tablet 2,000 unit PO DAILY gabapentin 600 mg tablet 600 mg PO QHS Qty: 30 4RF venlafaxine 75 mg capsule,extended release 24hr 75 mg PO QHS 90 Days Qty: 90 1RF venlafaxine 150 mg capsule,extended release 24hr 150 mg PO QAM 90 Days Qty: 90 1RF diazepam 5 mg tablet 2.5 mg PO BID PRN (Reason: anxiety) Qty: 30 2RF carbidopa-levodopa [Sinemet] 25-100 mg tablet 2 tab PO TID Qty: 180 5RF fludrocortisone 0.1 mg tablet 0.1 mg PO QAM Qty: 30 5RF tamsulosin 0.4 mg capsule 1 tab PO DAILY Patient Comments: TAKE 1 CAPSULE BY MOUTH ONCE DAILY apixaban 5 MG tablet 5 mg PO BID Qty: 74 0RF Rx Instructions: 10 mg twice a day for the first week. Then 5 mg twice a day. metformin 500 mg tablet extended release 24 hr 1,000 mg PO DAILY Primary Care Provider: Juarez Bledsoe Referrals: Juarez Bledsoe MD [Primary Care Provider] - Activity Restrictions/Additional Instructions: Your blood work did not show any acute findings today. Your chest x-ray did not show any evidence of pneumonia. Follow-up with your doctor in outpatient setting return with worsening symptoms or concerns. Continue take your medications as prescribed. Print Language: Estonian Disposition Disposition: Home, Self Care
[2024-08-20 14:10] VITALS: PULSE 82; RESP 15; O2SAT 98
[2024-08-20] MEDS: Acetaminophen 500 MG Tablet 1000 MG PO (14:49)
[2024-08-20 15:31] LABS: Troponin T High Sens 2 HR 29 ng/L (<=22)
[2024-08-20 15:46] VITALS: O2SAT 100
[2024-08-20 15:53] VITALS: BP 164/85; PULSE 87; RESP 19; TEMP 36.6; O2SAT 98
[2024-08-20 16:00] VITALS: PULSE 78; O2SAT 97
== END 2024-08-20 16:03 | disposition home or self-care (01) ==
PROVIDERS: Emergency Provider Emergency Medicine; PCP Family Medicine; Visit Provider Emergency Medicine
DX: R06.02 Shortness of breath (principal); E11.9 Type 2 diabetes mellitus without complications; Z87.891 Personal history of nicotine dependence; Z86.718 Personal history of other venous thrombosis and embolism
CPT/HCPCS: 71046; 80048; 83880; 84484; 85025; 85610; 85730; 93005; 96360; 96361; 99285; A4216

== ENCOUNTER 2025-02-26 18:59 | Emergency (ER) | payer MEDICARE, SELFPAY ==
[2025-02-26 19:00] VITALS: BP 128/70; PULSE 65; RESP 14; TEMP 37; O2SAT 98; BMI 25.2
[2025-02-26] MEDS: 0.9% Normal Saline (1000mL) 1,000 ML 999 ML IV ×2 (19:00→21:14)
--- NOTE | 2025-02-26 19:34 | EKG12_ITS ---
Test Reason : SYNCOPE Blood Pressure : */* mmHG Vent. Rate : 59 BPM Atrial Rate : 59 BPM P-R Int : 156 ms QRS Dur : 138 ms QT Int : 446 ms P-R-T Axes : -28 21 -10 degrees QTcB Int : 441 ms Sinus bradycardia Right bundle branch block Abnormal ECG Confirmed by IVON MARTINEZ, GODWIN ([id number]), development editor JASON LANCASTER ([id number]) on 02/27/2025 9:20:23 AM Referred By: KRISTINE Confirmed By: GODWIN DEL VALLE MD
--- NOTE | 2025-02-26 19:34 | RAD_ITS ---
PROCEDURE: CHEST 1 VIEW (PORTABLE) 02/26/2025 REASON FOR EXAM: SYNCOPE TECHNIQUE: Frontal view of the chest. COMPARISON: 08/20/2024 FINDINGS: Lungs/Pleura: No focal consolidation, pneumothorax or sizable pleural effusion. Heart/Mediastinum: Within normal limits. Bones/Soft tissues: Degenerative changes of the spine and visualized shoulders. RAD/Chest 1 View (Portable) IMPRESSION: No acute cardiopulmonary disease. Reading Location: [id number]
--- NOTE | 2025-02-26 19:37 | EX.ED.DYSGE1 ---
HPI History of Present Illness Chief Complaint: Syncope Narrative Narrative: 79-year-old male past medical history of dementia, Parkinson disease, low blood pressure presents with 3 syncopal episodes today. He states that his was hurrying him to get his haircut. He states that he sat at the edge of the chair and slid down. His states that he has a history of doing this and passing out. Per EMS, patient had a syncopal episode in front of them. Patient denies any prodromal symptoms. He did not hit his head during any of these events, he feels back to normal. No recent nausea or vomiting, no fever, no diarrhea or other symptoms. [facility] Medical History Dementia Parkinson disease Fatigue Major depression single episode, in partial remission Depression DVT (deep venous thrombosis) Type 2 diabetes mellitus Hyperlipidemia Essential hypertension Home Medications Medication Instructions Recorded Last Taken Type apixaban 5 mg tablet 5 mg PO BID #74 tabs 07/25/19 Unknown Rx finasteride 5 mg tablet 5 mg PO DAILY 05/15/20 Unknown History cholecalciferol (vitamin D3) 25 2,000 unit PO DAILY 05/19/21 Unknown History mcg (1,000 unit) tablet metformin 500 mg tablet,extended 1,000 mg PO DAILY 04/13/22 Unknown History release 24 hr midodrine 5 mg tablet 5 mg PO .COMPLEX #60 tabs 12/13/24 Unknown Rx diazepam 5 mg tablet 2.5 mg (1/2 x 5 mg) PO BID PRN 12/20/24 Unknown Rx anxiety #30 tabs venlafaxine 150 mg 150 mg PO QAM 90 days #90 caps 12/20/24 Unknown Rx capsule,extended release 24 hr venlafaxine 75 mg capsule,extended 75 mg PO QHS 90 days #90 caps 12/20/24 Unknown Rx release 24 hr carbidopa 25 mg-levodopa 100 mg 2 tab PO TID #180 tabs 01/24/25 Unknown Rx tablet (Sinemet) carbidopa ER 50 mg-levodopa 200 mg 1 tab PO QHS #30 tabs 01/24/25 Unknown Rx tablet,extended release fludrocortisone 0.1 mg tablet 0.1 mg PO QAM #30 tabs 02/02/25 Unknown Rx gabapentin 600 mg tablet 600 mg PO QHS #30 tabs 02/02/25 Unknown Rx tamsulosin 0.4 mg capsule 0.4 mg PO DAILY #30 caps 02/02/25 Unknown Rx cephalexin 500 mg capsule 500 mg PO Q12 #14 CAPSULES 02/26/25 Unknown Rx Allergy/AdvReac Type Severity Reaction Status Date / Time Jiuugkk-CLV-CmM Reductase AdvReac Intermediate Nausea Verified 02/26/25 19:03 Inhibitor (Lekhduv-Mvc-Qrh Reductase Inhibitor) Family History Father Parkinson's disease Other Arthritis Blood Clots Depression Diabetes Surgical History History of inguinal hernia repair, bilateral Social History Smoking Status: Former smoker Tobacco: How many years used: 30 Electronic Cigarette Use: not used second hand exposure: Yes (Did smoke in the house ) alcohol intake: former substance use type: does not use shabana/roman catholic: Mandaeism seatbelt use: always ROS ROS ED ROS Narrative Review of systems positive for syncopal episodes. No fevers or chills, no cough, no dysuria or hematuria, no nausea or vomiting, no recent diarrhea. EXAM Physical Exam Narrative Exam Narrative: Afebrile. Vital signs noted. Nontoxic-appearing. Cardiovascular semination regular rate and rhythm. Lungs are clear to auscultation bilaterally. Abdomen is soft nontender with positive bowel sounds. Neurological examination is nonfocal, nonlateralizing. Patient is awake, alert, oriented, and appropriate. No noted pedal edema. Able to raise legs off bed independently without assistance. Const Vital Signs: 02/26/25 19:00 02/26/25 19:09 02/26/25 20:00 Temperature 98.6 F Temperature Source Oral Pulse Rate 65 Pulse Rate [Lying] 64 Pulse Rate [Sitting (for 1 minute prior to obtaining)] 67 Pulse Rate [Standing (for 1 minute prior to obtaining)] 94 Respiratory Rate 14 Respiratory Effort Normal Respiratory Pattern Normal Blood Pressure 128/70 H Blood Pressure [Lying] 113/69 Blood Pressure [Sitting (for 1 minute prior to obtaining)] 112/63 Blood Pressure [Standing (for 1 minute prior to obtaining)] 154/100 H Blood Pressure Mean 89 Blood Pressure Mean [Lying] 83 Blood Pressure Mean [Sitting (for 1 minute prior to obtaining)] 79 Blood Pressure Mean [Standing (for 1 minute prior to obtaining)] 118 Pulse Ox 98 Oxygen Delivery Method Room Air 02/26/25 21:00 02/26/25 22:45 Temperature Temperature Source Pulse Rate 64 70 Pulse Rate [Lying] Pulse Rate [Sitting (for 1 minute prior to obtaining)] Pulse Rate [Standing (for 1 minute prior to obtaining)] Respiratory Rate 18 18 Respiratory Effort Respiratory Pattern Blood Pressure 124/60 H 128/74 H Blood Pressure [Lying] Blood Pressure [Sitting (for 1 minute prior to obtaining)] Blood Pressure [Standing (for 1 minute prior to obtaining)] Blood Pressure Mean 81 90 Blood Pressure Mean [Lying] Blood Pressure Mean [Sitting (for 1 minute prior to obtaining)] Blood Pressure Mean [Standing (for 1 minute prior to obtaining)] Pulse Ox 98 96 Oxygen Delivery Method Room Air Room Air MDM MDM MDM Narrative Medical decision making narrative: The differential diagnosis includes but not limited to dehydration versus other electrolyte imbalance versus intravascular volume depletion versus orthostatic hypotension and vasovagal syncope. EKG was obtained and interpreted by myself independently as sinus bradycardia at 59 bpm without ectopy or acute ST changes. No STEMI. I reviewed his laboratory work and he has a normal white count of 8.3 with hemoglobin stable at 12.6, hematocrit 38.9, platelet count normal at 162. Electrolyte panel shows BUN of 63 with creatinine 1.91. When compared to prior labs she has had previous acute kidney injuries, almost chronic kidney disease. Glucose elevated at 185 with anion gap normal at 13. Patient was bolused normal saline and able to tolerate p.o. challenge. His urinalysis is significant for greater than 100 WBCs with RBCs 0-5 and 1+ bacteria. This was sent for culture. He was started on cephalexin and written a prescription to take twice a day for the next 7 days. His troponin is 28, but when compared to prior labs this is improved so I feel this is his baseline. Chest x-ray interpreted by myself independently shows no evidence of an acute process, no pneumonia or pneumothorax. I reviewed the radiology report which confirms my independent interpretation. His orthostatics may have been positive in the sense of he had an increase of greater than 20 and his pulse but no significant drop in his blood pressure upon standing. Upon repeat examination, he is resting comfortably. While I am unsure as to his reported 3 episodes of syncope and even witnessed, patient feels well and would like to be discharged. Through shared decision making, I do feel that he can be discharged to follow-up as he received IV fluids. Strict return instructions to the emergency department were reviewed with the patient, his , and his son. His son is agreeable to take him home. I do find this reasonable as he has had a negative workup here and feels improved. His repeat HST is 27 for an acceptable delta. Disposition is discharged home in stable condition. History & Record Review Discussion w/independent historian: Patient and Family Additional record(s) reviewed:: Prior ED visit and Prior labs Lab Data Attestation: I reviewed the patient's lab results. Labs: Laboratory Results - last 24 hr 02/26/25 02/26/25 02/26/25 19:00 21:30 22:20 WBC 8.3 RBC 4.29 L Hgb 12.6 L Hct 38.9 L MCV 90.7 MCH 29.4 MCHC 32.4 RDW Std Deviation 48.5 H RDW Coeff of Marcus 14.6 Plt Count 162 MPV 10.8 Immature Gran % (Auto) 0.400 Neut % (Auto) 63.8 Lymph % (Auto) 27.7 [place] % (Auto) 5.5 Eos % (Auto) 1.9 Baso % (Auto) 0.7 Absolute Neuts (auto) 5.3 Absolute Lymphs (auto) 2.30 Nucleated RBC % 0 Sodium 141 Potassium 4.5 Chloride 104 Carbon Dioxide 24.1 Anion Gap 13 BUN 63 H Creatinine 1.91 H Estim Creat Clear Calc 30.33 L Est GFR (MDRD) Non-Af 35 L BUN/Creatinine Ratio 33.0 H Glucose 185 H Calcium 9.2 Troponin T High Sens 28 H D Troponin T Hi Sens 2 Hr 27 H Urine Color Yellow Urine Clarity Cloudy Urine pH 6.0 Ur Specific [place] 1.010 Urine Protein 30 H Urine Glucose (UA) Normal Urine Ketones Negative Urine Occult Blood 25 H Urine Nitrite Negative Urine Bilirubin Negative Urine Urobilinogen Normal Ur Leukocyte Esterase 500 H Urine RBC 0-5 SEEN Urine WBC >100 SEEN Ur Squamous Epith Cells 0-5 SEEN Urine Bacteria 1+ Urine Mucus 0 SEEN Radiography Chest X-Ray - ED: 1 View, Read by ED Physician and Read by Radiologist Diagnostic Testing: Clinical Impression(s) from Imaging Studies Chest X-Ray 11/25/25 19:34 IMPRESSION: No acute cardiopulmonary disease. Reading Location: [id number] Discharge Plan Triage Chief Complaint: Syncope ED Provider: Jose Neville Dx/Rx/DC Orders Clinical Impression: Syncope, UTI (urinary tract infection) Instructions: ED Fainting, Uncertain Cause, ED Bladder Infection, Male (Adult) Prescriptions: New cephalexin 500 mg capsule 500 mg PO Q12 Qty: 14 0RF No Action finasteride 5 mg tablet 5 mg PO DAILY Patient Comments: TAKE 1 TABLET BY MOUTH EVERY DAY AT BEDTIME cholecalciferol (vitamin D3) 25 mcg (1,000 unit) tablet 2,000 unit PO DAILY venlafaxine 150 mg capsule,extended release 24hr 150 mg PO QAM 90 Days Qty: 90 1RF venlafaxine 75 mg capsule,extended release 24hr 75 mg PO QHS 90 Days Qty: 90 1RF diazepam 5 mg tablet 2.5 mg PO BID PRN (Reason: anxiety) Qty: 30 2RF midodrine 5 mg tablet 5 mg PO .COMPLEX Qty: 60 1RF Rx Instructions: Take 1 tablet orally every morning and 1 tablet at noon daily. carbidopa-levodopa [Sinemet] 25-100 mg tablet 2 tab PO TID Qty: 180 2RF carbidopa-levodopa 50-200 mg tablet extended release 1 tab PO QHS Qty: 30 2RF fludrocortisone 0.1 mg tablet 0.1 mg PO QAM Qty: 30 3RF tamsulosin 0.4 mg capsule 0.4 mg PO DAILY Qty: 30 3RF gabapentin 600 mg tablet 600 mg PO QHS Qty: 30 3RF apixaban 5 MG tablet 5 mg PO BID Qty: 74 0RF Rx Instructions: 10 mg twice a day for the first week. Then 5 mg twice a day. metformin 500 mg tablet extended release 24 hr 1,000 mg PO DAILY Primary Care Provider: Juarez Bledsoe Referrals: Juarez Bledsoe MD [Primary Care Provider, Family Practice] - 3-5 Days Activity Restrictions/Additional Instructions: Return to the emergency department with increased fainting spells, fever, new or worsening symptoms. Print Language: [place]ican Disposition Disposition: Home, Self Care
--- OUTSIDE RECORDS SUMMARY | 2025-02-26 19:46 | XMS RPT_ITS | CCD ---
Author Organization [facility] Care Team Providers Care Furnace Process Supervisor Name Role Phone Dr. Antonio Ward Chi Primary Care Provider [phone] Dr[address] Antonio Ward Chi Referring Provider Dr. Woodrow Chappell Attending Provider Woodrow Chappell Referring Unavailable Woodrow Chappell Attending Unavailable Ranwade, Christopher Primary Care Unavailable Ranney, Christopher Primary Care Unavailable Woodrow Chappell Attending Unavailable Woodrow Chappell Referring Unavailable Wang Poon Attending Unavailable Ranney, Christopher Primary Care Unavailable BadWoodrow morgan Attending Unavailable Ranney, Christopher Primary Care Unavailable Ranney, Christopher Referring Unavailable Ranney, Christopher Primary Care Unavailable BaddoWoodrow ward Attending Unavailable Ta Woodrow Referring Unavailable Ranney, Christopher Primary Care Unavailable BaddoWoodrow ward Attending Unavailable Ranney, Christopher Referring Unavailable Tommie Nazario Attending Unavailable Ranney, Christopher Primary Care Unavailable Ranney, Christopher Primary Care Unavailable Baddour, Woodrow Attending Unavailable Ranney, Christopher Referring Unavailable Ranney, Christopher Primary Care Unavailable Tommie Nazario Attending Unavailable Ranney, Christopher Primary Care Unavailable Baddour, Woodrow Attending Unavailable Ranney, Christopher Referring Unavailable Ranney, Christopher Primary Care Unavailable Ranney, Christopher Attending Unavailable Ranney, Christopher Referring Unavailable Allergies Allergy Classification Reported Allergen(s) Allergy Type Date of Onset Reaction(s) Facility (1 source) Uvfyzsp-Gvc-Abm Reductase Inhibitor Propensity to adverse reactions 3 Nausea [facility] (1 source) Elsssfu-Yqk-Bnt Reductase Inhibitor Drug allergy (disorder) 5 [facility] Repository Medications Current Medications Medication Drug Class(es) Dates Sig (Normalized) Sig (Original) 24 hr amphetamine aspartate 3.75 mg / amphetamine sulfate 3.75 mg / dextroamphetamine saccharate 3.75 mg / dextroamphetamine sulfate 3.75 mg extended release oral capsule (2 sources) Central Nervous System Stimulant Start: 07-25-2019 End: 05-14-2020 take 15 mg by mouth once daily Dextroamphetami ne-Amphetamine Active 15 MG PO DAILY May 14, 2020 2:26pm apixaban 5 mg oral tablet (1 source) Factor Xa Inhibitor Start: 07-25-2019 take 10 mg by mouth twice daily, then take 5 mg by mouth twice daily Apixaban Active 5 MG PO TWICE A DAY July 24, 2019 11:00pm 10 mg twice a day for the first week. Then 5 mg twice a day. carbidopa 25 mg / levodopa 100 mg oral tablet (6 sources) Aromatic Amino Acid Decarboxylation Inhibitor, Aromatic Amino Acid Start: 06-26-2020 End: 04-13-2022 take 1 tablet by mouth three times daily Carbidopa-Levod opa (Sinemet) 25-100 mg tablet Active 1 TABLET PO THREE TIMES A DAY April 13, 2022 6:22pm Start: 05-15-2020 End: 06-26-2020 take 1 tablet by mouth once daily, then take 1 tablet by mouth twice daily, then take 1 tablet by mouth three times daily Carbidopa-Levodopa (Sinemet) 25-100 mg tablet Discontinued 0 .ROUTE .COMPLEX May 15, 2020 12:00am June 26, 2020 8:42pm Take 1 tab PO once daily x 1 week, then 1 tab PO twice daily x 1 week, then 1 tab PO three times daily thereafter cholecalciferol 0.025 mg oral tablet (2 sources) Vitamin D Start: 05-19-2021 take 2000 [IU] by mouth once daily Cholecalciferol (Vitamin D3) Active 2000 UNIT PO DAILY May 19, 2021 10:14am Start: 07-25-2019 End: 05-19-2021 take 1000 [IU] by mouth once daily Cholecalciferol (Vitamin D3) Discontinued 1000 UNIT PO DAILY July 24, 2019 11:00pm May 19, 2021 10:15am diazePAM 5 mg oral tablet (1 source) Benzodiazepine Start: 05-14-2020 take 2.5 mg by mouth twice daily Diazepam Active 2.5 MG PO TWICE A DAY May 14, 2020 12:00am finasteride 5 mg oral tablet (2 sources) 5-alpha Reductase Inhibitor Start: 07-25-2019 End: 05-15-2020 take 5 mg by mouth once daily Finasteride Active 5 MG PO DAILY May 15, 2020 12:00am fludrocortisone acetate 0.1 mg oral tablet (4 sources) Start: 12-24-2021 End: 04-13-2022 take 0.1 mg by mouth once in the morning Fludrocortisone Active 0.1 MG PO .COMPLEX April 13, 2022 6:22pm 0.1 mg orally 5 days per week (every Tue, Tue, Tue, Tue, Tue) to be taken in the morning Start: 11-19-2021 End: 12-24-2021 take 0.1 mg by mouth two times weekly in the morning Fludrocortisone Discontinued 0.1 MG PO .COMPLEX November 18, 2021 11:00pm December 24, 2021 4:41pm 0.1 mg orally twice per week to be taken in the morning gabapentin 400 mg oral capsule (6 sources) Anti-epileptic Agent Start: 04-13-2022 take 400 mg by mouth at bedtime Gabapentin Active 400 MG PO AT BEDTIME April 13, 2022 12:00am Start: 11-19-2021 End: 04-13-2022 take 300 mg by mouth at bedtime Gabapentin Discontinue d 300 MG PO AT BEDTIME November 18, 2021 11:00pm April 13, 2022 6:23pm Start: 09-07-2021 End: 11-19-2021 take 200 mg by mouth at bedtime Gabapentin Discontinue d 200 MG PO AT BEDTIME September 06, 2021 11:00pm November 19, 2021 10:42pm Start: 05-12-2021 End: 09-07-2021 take 400 mg by mouth at bedtime Gabapentin Discontinue d 400 MG PO AT BEDTIME May 12, 2021 12:00am September 07, 2021 3:14pm Start: 04-13-2021 End: 05-12-2021 take 200 mg by mouth at bedtime Gabapentin Discontinue d 200 MG PO AT BEDTIME April 13, 2021 1:44pm May 12, 2021 4:11pm Start: 03-03-2021 End: 04-13-2021 take 1 capsule by mouth once daily at bedtime, then take 2 capsules by mouth once daily at bedtime Gabapentin Discontinued 0 .ROUTE .COMPLEX 60 March 03, 2021 12:00am April 13, 2021 1:45pm Take 1 capsule PO QHS x 1 week, then take 2 capsules PO QHS thereafter 24 hr metFORMIN hydrochloride 500 mg extended release oral tablet (2 sources) Biguanide Start: 04-13-2022 take 1000 mg by mouth once daily Metformin Active 1000 MG PO DAILY April 13, 2022 3:58pm Start: 07-25-2019 End: 04-13-2022 take 500 mg by mouth once daily Metformin Discontinued 500 MG PO DAILY July 24, 2019 11:00pm April 13, 2022 3:59pm tamsulosin hydrochloride 0.4 mg oral capsule (1 source) alpha-Adrenergic Moon Start: 07-25-2019 take 1 tablet by mouth once daily Tamsulosin Active 1 TABLET PO DAILY July 24, 2019 11:00pm 24 hr venlafaxine 75 mg extended release oral capsule (2 sources) Serotonin and Norepinephrine Reuptake Inhibitor Start: 05-14-2020 take 75 mg by mouth once daily Venlafaxine Active 75 MG PO DAILY May 14, 2020 12:00am Start: 07-25-2019 take 150 mg by mouth once robin y Venlafaxine Active 150 MG PO DAILY July 24, 2019 11:00pm Completed/Discontinued Medications Medication Drug Class(es) Dates Sig (Normalized) Sig (Original) hydrOXYzine hydrochloride 50 mg oral tablet (1 source) Antihistamine Start: 05-12-2021 End: 11-19-2021 take 50 mg by mouth three times daily Hydroxyzine Hcl Discontinued 50 MG PO THREE TIMES A DAY May 12, 2021 12:00am November 19, 2021 2:47pm QUEtiapine 25 mg oral tablet (1 source) Atypical Antipsychotic Start: 07-25-2019 End: 05-15-2020 Quetiapine Discontinued 25 TABLET PO TWICE A DAY July 24, 2019 11:00pm May 15, 2020 11:02am 1 tabs 1-2 times per daily traZODone hydrochloride 50 mg oral tablet (3 sources) Serotonin Reuptake Inhibitor Start: 07-25-2019 End: 04-13-2022 take 25-100 mg by mouth at bedtime Trazodone Discontinued 25 - 100 MG PO AT BEDTIME May 15, 2020 11:02am April 13, 2022 6:23pm Problems Active Problems Problem Classification Problem Date Documented Da te Episodic/Chronic Diabetes mellitus without complication (1 source) Type 2 diabetes mellitus; Translations: [Type 2 diabetes mellitus without complications] 05-14-2020 Chronic Disorders of lipid metabolism (1 source) Hyperlipidemia; Translations: [Hyperlipidemia, unspecified] 05-14-2020 Chronic Essential hypertension (1 source) Essential hypertension; Translations: [Essential (primary) hypertension] 05-14-2020 Chronic Mood disorders (2 sources) Depressive disorder; Translations: [Depression] Onset: 12-20-2024 05-14-2020 Chronic Nutritional deficiencies (2 sources) Vitamin D deficiency; Translations: [Vitamin D deficiency, unspecified] 04-13-2022 Chronic Other circulatory disease (1 source) Orthostatic hypotension; Translations: [Orthostatic hypotension] 01-21-2022 Episodic Other hereditary and degenerative nervous system conditions (1 source) Multiple system atrophy; Translations: [Multi-system degeneration of the autonomic nervous system] 11-19-2021 Chronic Other hereditary and degenerative nervous system conditions (1 source) Impaired cognition; Translations: [Mild cognitive impairment, so stated] 11-19-2021 Chronic Other hereditary and degenerative nervous system conditions (2 sources) Multi-system degeneration of the autonomic nervous system; Translations: [Other degenerative diseases of the basal ganglia] 01-07-2022 Chronic Other hereditary and degenerative nervous system conditions (1 source) Mild cognitive impairment, so stated; Translations: [Mild cognitive impairment, so stated] 04-13-2022 Chronic Other nervous system disorders (1 source) Polyneuropathy; Translations: [Polyneuropathy, unspecified] 11-19-2021 Chronic Other nervous system disorders (2 sources) Polyneuropathy, unspecified; Translations: [Unspecified hereditary and idiopathic peripheral neuropathy] Onset: 03-26-2024 04-13-2022 Chronic Other nutritional; endocrine; and metabolic disorders (1 source) H/O: diabetes mellitus; Translations: [Personal history of other endocrine, nutritional and metabolic disease] 07-25-2019 Episodic Parkinson`s disease (2 sources) Parkinson's disease; Translations: [Parkinson's disease] 11-19-2021 Chronic Parkinson`s disease (1 source) Parkinson`s disease; Translations: [Parkinson's disease without dyskinesia, with fluctuations] Onset: 04-10-2024 Peripheral and visceral atherosclerosis (2 sources) Peripheral vascular disease, unspecified; Translations: [Peripheral arterial disease] 04-13-2022 Chronic Phlebitis; thrombophlebitis and thromboembolism (2 sources) Deep venous thrombosis; Translations: [Acute embolism and thrombosis of unspecified deep veins of unspecified lower extremity] 05-14-2020 Episodic Past or Other Problems Problem Classification Problem Date Documented Da te Episodic/Chronic Genitourinary symptoms and ill-defined conditions (1 source) Frequency of micturition; Translations: [Frequency of micturition] Onset: 02-27-2024 Episodic Other diseases of kidney and ureters (1 source) Disorder of kidney and ureter, unspecified; Translations: [Disorder of kidney and ureter, unspecified] Onset: 04-23-2024 Episodic Other lower respiratory disease (1 source) Shortness of breath; Translations: [Shortness of breath] Onset: 08-23-2024 Episodic Other nutritional; endocrine; and metabolic disorders (1 source) Personal history of other endocrine, nutritional and metabolic disease; Translations: [Personal history of other endocrine, nutritional and metabolic disease] Onset: 02-27-2024 Episodic Results Test Name Value Interpretation Reference Range [facility] Neurology Visit Reporton Neurology Visit Report [facility] [address] [place] [address], [address] [place] [address] OFFICE VISIT Date of Service: 01/24/25 MR#: [id number] Acct: [id number] Name: NATO GUTIERREZ Rep #: [id number] : 1945 Provider: Dr. Woodrow bernard MD Age/Sex: 79/M Location: [facility]. Status: Signed [facility]PI [facility] Chief Complaint: Details: Interim History: Nato returns for follow-up visit. He has a history of diabetes mellitus, lower extremity DVT (left 2013, 2019; right 2016), GERD, depression, anxiety, insomnia, cluster headaches (from age 13- 48 years old), low back pain with right-sided sciatica and hyperlipidemia. He has had slowing and shuffling of his gait and some postural instability as well as a bilateral upper extremity tremor. He has had improvement of his mobility following initiation of carbidopa/levodopa however since earlier in 2024, he has had increased gait difficulty and increased postural instability. He is taking carbidopa/levodopa 25/100 3 tablets twice daily and 1 tablet every mid day Carbidopa/levodopa ER 50/200 nightly was ordered earlier in 2024 however it is unclear whether he is taking this. He has an intermittent tremor that at times interferes with handwriting. He has had multiple falls. He has memory difficulty. He reports having word finding difficulty. He has difficulty managing his finances and his is now involved in managing and overseeing their finances. He no longer drives. He states that he has a tendency to forget and repeat conversations. His memory has worsened further within recent months. He has had 3 occurrences of hallucinations this year (2024); he felt the hallucinations were a side effect of midodrine and discontinued this medication. He has sensory loss in the feet and has a burning sensation in the feet. Gabapentin 600 mg nightly has been of moderate benefit for his lower extremity neuropathic pain. A brief trial of discontinuing gabapentin resulted in worsening of his neuropathic pain in the feet and gabapentin was resumed. Alpha lipoic acid was not of benefit for his neuropathic pain. He he has had fatigue; this had diminished. A B12 1500 mcg IM injection was not of benefit for his fatigue. He had a reduction of his lightheadedness with the use of fludrocortisone and reports that he has not had further lightheadedness since his last visit in December 2024. He has had mild to moderate edema in the lower extremities. He had a reduction of his lower extremity edema with the use of compression stockings. He has a history of vitamin D insufficiency. He takes an egjh-gii-esxxmuy vitamin D supplement daily. Prior use of trazodone was not well-tolerated. He previously used melatonin for insomnia. He rises during the night to urinate and has urinary frequency. He no longer takes finasteride. He takes tamsulosin. DDAVP was of benefit however he subsequently developed renal insufficiency and DDAVP was discontinued and his renal function returned to his baseline. His ABIs do not reveal any significant large vessel disease; digital-brachial indices could not be determined on either side due to the non-compressibility of the vasculature at ankle level bila terally; there is evidence of arterial calcification at digital level bilaterally, which precludes quantification of arterial flow. Mini-mental status exam score was 28/30 in December 2024. Physical Exam: Neuro: The patient is awake and alert and responds appropriately; speech is fluent but mildly hypophonic; mild to moderate rigidity is noted; a slight left hand tremor is noted; gait is slow; he is oriented to day of the week; he is able to spell world backwards Neck: No bruits Heart: Regular rate and rhythm Supplemental Info Venous Doppler study (07/25/2019): Acute deep vein thrombosis is noted in the left femoral vein. Acute deep vein thrombosis is noted in the left tibio-peroneal trunk. Acute deep vein thrombosis is noted in the left posterior tibial vein. Acute deep vein thrombosis is noted in the left peroneal vein. Acute deep vein thrombosis is noted in the left gastrocnemius vein. Acute deep vein thrombosis is noted in the left soleus vein. The left common femoral vein and popliteal vein are patent, compressible, and competent. Acute superficial thrombophlebitis is noted involving the left great saphenous vein in the left groin. TEVIN (10/29/2019): Triphasic Doppler waveforms are noted at ankle level bilaterally. Resting ankle-brachial indices are normal bilaterally. The patient ambulated for 3 minutes on a treadmill at 1.8 MPH and a 5% grade, following which ankle pressures augmented bilaterally, which is a normal physiological response. There is no evidence of significant arterial occlusive disease in the lower extremities bilaterally. CBC, Folate, Vitamin B12, Vitamin B1, K/L LT CHNS (05/15/20): HGB 17.4, KFR KAPPA LT CHN 21.1, B12 379 (near the low end of n (more content not included)... Normal [facility] MR/BMS.BPon 12-20-2024 MR/BMS.BP [facility] [address], [address] [place] [address] OFFICE VISIT Date of Service: 12/20/24 MR#: [id number] Acct: [id number] Name: NATO GUTIERREZ Rep #: [id number] : 1945 Provider: Dr. Tommie Harris se, DO Age/Sex: 79/M Location: [facility].[facility] Status: Signed Intake Vital Signs 06/19/24 15:58 12/13/24 15:01 12/20/24 15:59 Height 5 ft 9 in 5 ft 9 in 5 ft 9 in BP 167/95 H Blood Pressure Location Lt brachial Position Sitting Respiration 16 Pulse 92 Pulse Source Monitor BP Intake Visit Reasons: 6 M FU Accompanied by: Self Allergies Rdjzmeq-KEQ-OuO Reductase Inhibitor (Hxqjfqc-Sra-Kmr Reductase Inhibitor) Adverse Reaction (Intermediate, Verified 12/20/24 16:01) Nausea Medications ???Medication ???Instructions ???Recorded ???Confirmed ???Type apixaban 5 mg tablet 5 mg PO BID #74 tabs 07/25/1912/03 Rx finasteride 5 mg tablet 5 mg PO DAILY 05/15/20 12/20/24 Hi story cholecalciferol (vitamin D3) 25 2,000 unit PO DAILY 05/19/2112/20 History mcg (1,000 unit) tablet metformin 500 mg tablet,extended 1,000 mg PO DAILY 04/13/22 5 History release 24 hr gabapentin 600 mg tablet 600 mg PO QHS #30 tabs 03/12/24 Rx carbidopa 25 mg-levodopa 100 mg 2 tab PO TID #180 tabs 12/13/24 Rx tablet (Sinemet) carbidopa ER 50 mg-levodopa 200 mg 1 tab PO QHS #30 tabs 12/13/24 0 12/20/24 Rx tablet,extended release fludrocortisone 0.1 mg tablet 0.1 mg PO QAM #30 tabs 12/13/24 Rx midodrine 5 mg tablet 5 mg PO .COMPLEX #60 tabs 12/13/24 12/20/24 Rx tamsulosin 0.4 mg capsule 0.4 mg PO DAILY #30 caps 12/13/24 12/20/24 Rx dextroamphetamine-amph etamine ER 10 mg PO DAILY 30 days #30 caps 12/20/24 Rx 10 mg 24hr capsule,extend release (Adderall XR) diazepam 5 mg tablet 2.5 mg (1/2 x 5 mg) PO BID PRN 12/20/24 Rx anxiety #30 tabs venlafaxine 150 mg 150 mg PO QAM 90 days #90 caps 12/20/24 Rx capsule,extended release 24 hr venlafaxine 75 mg capsule,extended 75 mg PO QHS 90 days #90 caps 12/20/24 Rx release 24 hr Have you fallen in the past year?: Yes PFSH Medical History Fatigue Major depression single episode, in partial remission Depression DVT (deep venous thrombosis) Type 2 diabetes mellitus Hyperlipidemia Essential hypertension Surgical History History of inguinal hernia repair, bilateral Family History Father Parkinson's disease Other Arthritis Blood Clots Depression Diabetes Social History Smoking Status: Former smoker Tobacco: How many years used: 30 Electronic Cigarette Use: not used second hand exposure: Yes (Did smoke in the house ) alcohol intake: former substance use type: does not use shabana/mosque: Confucianist seatbelt use: always HPI History of Present Illness History provided by: patient HPI: Nato Gutierrez is a 79 year old male who presents today for follow up evaluation. Patient reports that he has been "so-so." Has had several falls in the last 2 months specifically tripping, reports they were bad but manageable. Energy levels has been lower, usually is "Not very high." Has not taken adderall in over a year due to insurance cost but did feel like quality of life was better with medication. Sleep is somewhat up and down. Has no problems getting to sleep, but wakes up in the middle of the night. Has continued to lose weight, getting down to around 165 lbs today[address] Recently saw Dr. Chappell for neurology. Reports mood as overall being down. Has been spending time with his children which helps with his mood. Taking diazepam infrequently. Denies SI/HI or AVH. Review of Systems Constitutional Reports: fatigue; Denies: fever(s), chills or change in weight Eyes Denies: change in vision or blurry vision Ears, Nose, Mouth, Throat Denies: throat pain, neck pain or change in hearing Cardiovascular Denies: chest pain, palpitations or dyspnea Respiratory Denies: dyspnea, cough or wheezing Gastrointestinal Denies: abdominal pain, nausea, vomiting, diarrhea or constipation Genitourinary Denies: dysuria or urinary frequency Musculoskeletal Reports: back pain and joint pain; Denies: neck pain or muscle weakness Integumentary/Breast Denies: rash or new lesions Neurological Reports: weakness in extremities, lack of coordination, dizziness (intermittent) and other (shuffling gait); Denies: headache(s) or confusion Endocrine Reports: fatigue; Denies: excessive sweating Hematologic/Lymphatic Denies: e (more content not included)... Normal [facility] Neurology Visit Reporton Neurology Visit Report [facility] [address], [address] [place] [address] OFFICE VISIT Date of Service: 12/13/24 MR#: [id number] Acct: [id number] Name: NATO GUTIERREZ Rep #: [id number] : 1945 Provider: Dr. Woodrow bernard MD Age/Sex: 79/M Location: [facility]. Status: Signed [facility]PI [facility] Chief Complaint: Details: Interim History: Nato returns for follow-up visit. He has a history of diabetes mellitus, lower extremity DVT (left 2013, 2019; right 2016), GERD, depression, anxiety, insomnia, cluster headaches (from age 13- 48 years old), low back pain with right-sided sciatica and hyperlipidemia. He has had slowing and shuffling of his gait and some postural instability as well as a bilateral upper extremity tremor. He has had improvement of his mobility following initiation of carbidopa/levodopa however more recently he has had increased gait difficulty and increased postural instability. He is taking carbidopa/levodopa 25/100 2 tablets 3 times daily. He has an intermittent tremor that at times interferes with handwriting. He has mild cognitive deficits. He reports having word finding difficulty. He has difficulty managing his finances and his is now involved in managing and overseeing their finances. He states that he has a tendency to forget and repeat conversations. He also has sensory loss in the feet and has a burning sensation in the feet. Gabapentin 600 mg nightly has been of moderate benefit for his lower extremity neuropathic pain. A brief trial of discontinuing gabapentin resulted in worsening of his neuropathic pain in the feet and gabapentin was resumed. Alpha lipoic acid was not of benefit for his neuropathic pain. He he has had fatigue; this had diminished. A B12 1500 mcg IM injection was not of clear benefit for his fatigue. He has had a reduction of his lightheadedness with the use of fludrocortisone 0.1 mg however he continues to experience some episodes of lightheadedness if he raul over, or at times when he arises, or at times when he walks. He has had mild to moderate edema in the lower extremities. He had a reduction of his lower extremity edema with the use of compression stockings. He has a history of vitamin D insufficiency. He takes an jkuu-xuc-uyoqzpj vitamin D supplement daily. Prior use of trazodone was not well-tolerated. He previously used melatonin for insomnia. He rises during the night to urinate and has urinary frequency. He takes finasteride. He no longer takes tamsulosin however he wishes to resume this medication. DDAVP was of benefit however he subsequently developed renal insufficiency and DDAVP was discontinued and his renal function returned to his baseline. His ABIs do not reveal any significant large vessel disease; digital-brachial indices could not be determined on either side due to the non-compressibility of the vasculature at ankle level bilaterally; there is evidence of arterial calcification at digital level bilaterally, which precludes quantification of arterial flow. Physical Exam: Neuro: The patient is awake and alert and responds appropriately; speech is fluent but mildly hypophonic; moderate rigidity is noted in the wrists and legs; a moderate tremor is noted when arms are extended; gait is slow and unsteady; Mini-Mental status exam score is 28/30 Neck: No bruits Heart: Regular rate and rhythm Supplemental Info Venous Doppler study (07/25/2019): Acute deep vein thrombosis is noted in the left femoral vein. Acute deep vein thrombosis is noted in the left tibio-peroneal trunk. Acute deep vein thrombosis is noted in the left posterior tibial vein. Acute deep vein thrombosis is noted in the left peroneal vein. Acute deep vein thrombosis is noted in the left gastrocnemius vein. Acute deep vein thrombosis is noted in the left soleus vein. The left common femoral vein and popliteal vein are patent, compressible, and competent. Acute superficial thrombophlebitis is noted involving the left great saphenous vein in the left groin. TEVIN (10/29/2019): Triphasic Doppler waveforms are noted at ankle level bilaterally. Resting ankle-brachial indices are normal bilaterally. The patient ambulated for 3 minutes on a treadmill at 1.8 MPH and a 5% grade, following which ankle pressures augmented bilaterally, which is a normal physiological response. There is no evidence of significant arterial occlusive disease in the lower extremities bilaterally. Labs (05/07/2020): CMP: BUN 25 (H), glucose 198 (H), AST 10 (L) Lipid panel: HDL 38 (L) TSH: Normal (patient reports in-office A1c of 7.2%) CBC, Folate, Vitamin B12, Vitamin B1, K/L LT CHNS (05/15/20): HGB 17.4, KFR KAPPA LT CHN 21.1, B12 379 (near the low end of normal range). Brain MRI 06/02/20 IMPRESSION: Mild atrophy and periventricular white matter ischemic changes. No evidence for acute infarct. No enhancing lesions following contrast (more content not included)... Normal [facility] 12 Lead EKGon 08-20-2024 12 Lead EKG [facility] Cardiovascular Services [address] [place] [address] 12 Lead EKG 08/20/24 1320 MR#: [id number] Acct: [id number] Name: NATO GUTIERREZ Rep #: [id number] : 1945 78 From: Virgil Goode MD Attending Dr: Status: DEP ER Ordering Dr: Wang Poon DO Date: 08/20/24 Location: ED Sex: M C Admitted: Test Reason : CHEST PAIN Blood Pressure : */* mmHG Vent. Rate : 80 BPM Atrial Rate : 80 BPM P-R Int : 170 ms QRS Dur : 128 ms QT Int : 400 ms P-R-T Axes : 29 23 3 degrees QTcB Int : 461 ms Normal sinus rhythm Right bundle branch block Abnormal ECG Confirmed by VIRGIL GOODE MD ([id number]), web editor JASON LANCASTER ([id number]) on 08/21/2024 1:27:17 PM Referred By: Confirmed By: VIRGIL GOODE MD 08/21/24 1327 Date Virgil Goode MD CC: Dr. Juarez Bledsoe MD; Dr. Wang Poon DO Signed Normal [facility] Basic Metabolic Profile (BMP )on 08-20-2024 BUN/CRE 20.1 RATIO High 10-20 [facility] Comment on above: Performed By: #### L 503.7505, L100.0100, L500.2500, L501.4021, L300.4310, L300.3900 #### [facility] Laboratory [address] [place], [address] Calcium [Mass/Vol] 9.5 mg/dL Normal 7.6-11.0 [facility] Comment on above: Performed By: #### L 503.7505, L100.0100, L500.2500, L501.4021, L300.4310, L300.3900 #### [facility] Laboratory [address] [place], [address] Chloride [Moles/Vol] 107 mmol/L Normal 98-108 [facility] Comment on above: Performed By: #### L 503.7505, L100.0100, L500.2500, L501.4021, L300.4310, L300.3900 #### [facility] Laboratory [address] [place], [address] CO2 [Moles/Vol] 24.6 mmol/L Normal 21.0-32.0 [facility] Comment on above: Performed By: #### L 503.7505, L100.0100, L500.2500, L501.4021, L300.4310, L300.3900 #### [facility] Laboratory [address] [place], [address] Creatinine [Mass/Vol] 1.35 mg/dL High 0.70-1.20 [facility] Comment on above: Performed By: #### L 503.7505, L100.0100, L500.2500, L501.4021, L300.4310, L300.3900 #### [facility] Laboratory [address] [place], [address] ECRCL 43.64 ml/min Low 50-250 [facility] Comment on above: Performed By: #### L 503.7505, L100.0100, L500.2500, L501.4021, L300.4310, L300.3900 #### [facility] Laboratory [address] [place], [address] GAP 14 Normal 5-15 [facility] Comment on above: Performed By: #### L 503.7505, L100.0100, L500.2500, L501.4021, L300.4310, L300.3900 #### [facility] Laboratory [address] [place], [address] GFR/1.73 sq M.predicted among non-blacks MDRD (S/P/Bld) [Vol rate/Area] 53 mL/min/{1.73_m2} Low >60 [facility] Comment on above: Result Comment: mL/m in/1.73m2 CKD-EPI Creatinine Equation (2020) Performed By: #### L 503.7505, L100.0100, L500.2500, L501.4021, L300.4310, L300.3900 #### [facility] Laboratory [address] [place], [address] Glucose [Mass/Vol] 186 mg/dL High 70-99 [facility] Comment on above: Performed By: #### L 503.7505, L100.0100, L500.2500, L501.4021, L300.4310, L300.3900 #### [facility] Laboratory [address] [place], [address] Potassium [Moles/Vol] 3.8 mmol/L Normal 3.3-5.1 [facility] Comment on above: Performed By: #### L 503.7505, L100.0100, L500.2500, L501.4021, L300.4310, L300.3900 #### [facility] Laboratory [address] [place], [address] Sodium [Moles/Vol] 145 mmol/L Normal 133-145 [facility] Comment on above: Performed By: #### L 503.7505, L100.0100, L500.2500, L501.4021, L300.4310, L300.3900 #### [facility] Laboratory [address] [place], [address] Urea nitrogen [Mass/Vol] 27 mg/dL High 4-19 [facility] Comment on above: Performed By: #### L 503.7505, L100.0100, L500.2500, L501.4021, L300.4310, L300.3900 #### [facility] Laboratory [address] [place], [address] CBC W/Diff, Automatedon 05-1 Absolute Lymph 2.45 X10 3/uL Normal 0.83-4.51 [facility] Comment on above: Performed By: #### L 503.7505, L100.0100, L500.2500, L501.4021, L300.4310, L300.3900 #### [facility] Laboratory [address] [place], [address] Absolute Neut 7.3 X10 3/uL Normal 2.0-7.7 [facility] Comment on above: Performed By: #### L 503.7505, L100.0100, L500.2500, L501.4021, L300.4310, L300.3900 #### [facility] Laboratory [address] [place], [address] Basophils/100 WBC (Bld) 0.8 % Normal 0-1 [facility] Comment on above: Performed By: #### L 503.7505, L100.0100, L500.2500, L501.4021, L300.4310, L300.3900 #### [facility] Laboratory [address] [place], [address] Eosinophils/100 WBC (Bld) 2.2 % Normal 0-5 [facility] Comment on above: Performed By: #### L 503.7505, L100.0100, L500.2500, L501.4021, L300.4310, L300.3900 #### [facility] Laboratory [address] [place], [address] Erythrocyte distribution width (RBC) [Ratio] 13.2 % Normal 11.6-14.6 [facility] Comment on above: Performed By: #### L 503.7505, L100.0100, L500.2500, L501.4021, L300.4310, L300.3900 #### [facility] Laboratory [address] [place], [address] Hematocrit (Bld) [Volume fraction] 43.6 % Normal 40-54 [facility] Comment on above: Performed By: #### L 503.7505, L100.0100, L500.2500, L501.4021, L300.4310, L300.3900 #### [facility] Laboratory [address] [place], [address] Hemoglobin (Bld) [Mass/Vol] 14.7 g/dL Normal 13.0-16.5 [facility] Comment on above: Performed By: #### L 503.7505, L100.0100, L500.2500, L501.4021, L300.4310, L300.3900 #### [facility] Laboratory [address] [place], [address] IG% 0.400 Normal 0.0-0.9 [facility] Comment on above: Result Comment: IG% - Immature Granulocytes (promyelocytes, myelocytes and metamyelocytes) > 1% indicates that a LEFT SHIFT is Present. Performed By: #### L 503.7505, L100.0100, L500.2500, L501.4021, L300.4310, L300.3900 #### [facility] Laboratory [address] [place], [address] Lymphocytes/100 WBC (Bld) 23.0 % Normal 19-41 [facility] Comment on above: Performed By: #### L 503.7505, L100.0100, L500.2500, L501.4021, L300.4310, L300.3900 #### [facility] Laboratory [address] [place], [address] MCH (RBC) [Entitic mass] 30.2 pg Normal 27.0-32.0 [facility] Comment on above: Performed By: #### L 503.7505, L100.0100, L500.2500, L501.4021, L300.4310, L300.3900 #### [facility] Laboratory [address] [place], [address] MCHC (RBC) [Mass/Vol] 33.7 g/dL Normal 32-36 [facility] Comment on above: Performed By: #### L 503.7505, L100.0100, L500.2500, L501.4021, L300.4310, L300.3900 #### [facility] Laboratory [address] [place], [address] MCV (RBC) [Entitic vol] 89.7 fL Normal 80-94 [facility] Comment on above: Performed By: #### L 503.7505, L100.0100, L500.2500, L501.4021, L300.4310, L300.3900 #### [facility] Laboratory [address] [place], [address] Monocytes/100 WBC (Bld) 5.5 % Normal 0-10 [facility] Comment on above: Performed By: #### L 503.7505, L100.0100, L500.2500, L501.4021, L300.4310, L300.3900 #### [facility] Laboratory [address] [place], [address] Neutrophils/100 WBC (Bld) 68.1 % Normal 47-70 [facility] Comment on above: Performed By: #### L 503.7505, L100.0100, L500.2500, L501.4021, L300.4310, L300.3900 #### [facility] Laboratory [address] [place], [address] Nucleated RBC (Bld) [#/Vol] 0 10*3/uL Normal 0-5 [facility] Comment on above: Performed By: #### L 503.7505, L100.0100, L500.2500, L501.4021, L300.4310, L300.3900 #### [facility] Laboratory [address] [place], [address] Platelet mean volume (Bld) [Entitic vol] 10.7 fL Normal 6.2-12.0 [facility] Comment on above: Performed By: #### L 503.7505, L100.0100, L500.2500, L501.4021, L300.4310, L300.3900 #### [facility] Laboratory [address] [place], [address] Platelets (Bld) [#/Vol] 202 10*3/uL Normal 150-450 [facility] Comment on above: Performed By: #### L 503.7505, L100.0100, L500.2500, L501.4021, L300.4310, L300.3900 #### [facility] Laboratory [address] [place], [address] RBC (Bld) [#/Vol] 4.86 10*6/uL Normal 4.6-6.2 [facility] Comment on above: Performed By: #### L 503.7505, L100.0100, L500.2500, L501.4021, L300.4310, L300.3900 #### [facility] Laboratory [address] [place], [address] RDW SD 43.0 fl Normal 35.1-43.9 [facility] Comment on above: Performed By: #### L 503.7505, L100.0100, L500.2500, L501.4021, L300.4310, L300.3900 #### [facility] Laboratory [address] [place], [address] WBC (Bld) [#/Vol] 10.7 10*3/uL Normal 4.4-11.0 [facility] Comment on above: Performed By: #### L 503.7505, L100.0100, L500.2500, L501.4021, L300.4310, L300.3900 #### [facility] Laboratory [address] [place], [address] Chest PA and Lateralon 08-20 Chest PA and Lateral [facility] Imaging Services [address] [place] [address] Chest PA and Lateral MR#: [id number] Acct: [id number] Name: NATO GUTIERREZ Rep #: [id number] : 1945 M 78 From: Rahul gayle MD PCP: Dr. Juarez Bledsoe MD Status: [facility] ER Study: Chest PA and Lateral Date of Exam: 08/20/24 Exam# [id number] Ordering Dr: Wang Poon DO PROCEDURE: CHEST PA AND LATERAL 08/20/2024 REASON FOR EXAM: CHEST PAIN TECHNIQUE: Frontal and lateral views of the chest. COMPARISON: No prior study available for comparison. FINDINGS: Hardware: EKG electrodes are seen. Heart: The heart is nonenlarged. Tortuosity of the descending thoracic aorta. Mediastinum: Unremarkable Lungs: The lungs are clear. Bones: Degenerative changes are identified within the thoracic spine. RAD/Chest PA and Lateral IMPRESSION: NO ACUTE FINDINGS. Reading Location: [place] [address] CC: Dr. Juarez Bledsoe MD; Dr. Wang Poon DO Client Care Consultant: Signed Normal [facility] Emergency Department Summary on 08-20-2024 Emergency Department Summary [facility] Medical Records Department [address] [place] [address] Emergency Department Summary 08/20/24 MR#: [id number] Acct: [id number] Name: NATO GUTIERREZ Rep #: [id number] : 1945 78 From: Wang Poon DO PCP: Dr. Juarez Bledsoe MD Status:REG ER Location: ED HPI History of Present Illness Chief Complaint: Shortness of Breath Narrative Narrative: Patient is a 78-year-old male with past medical history of DVT on Eliquis, type 2 diabetes, depression, Parkinson's disease, hypertension who presented to the emergency department with a chief complaint of shortness of breath. Patient states that he woke up in the [place] short of breath and states that he did not want a wake anybody up therefore he took his prescribed diazepam which she was able to fall back asleep. He states that he woke up again this morning and was had very similar symptoms therefore he called EMS to have him brought here for further evaluation management. Patient states that has been compliant with his medications not missing any doses. [facility] Medical History Fatigue Major depression single episode, in partial remission Depression DVT (deep venous thrombosis) Type 2 diabetes mellitus Hyperlipidemia Essential hypertension Home Medications ???Medication ???Instructions ???Recorded ???Last Taken ???Type apixaban 5 mg tablet 5 mg PO BID #74 tabs 07/25/19 Unkn own Rx tamsulosin 0.4 mg capsule 1 tab PO DAILY 07/25/19 Unknown Hi story finasteride 5 mg tablet 5 mg PO DAILY 05/15/20 Unknown His tory cholecalciferol (vitamin D3) 25 2,000 unit PO DAILY 05/19/21 Unkno wn History mcg (1,000 unit) tablet metformin 500 mg tablet,extended 1,000 mg PO DAILY 04/13/22 Unknown History release 24 hr gabapentin 600 mg tablet 600 mg PO QHS #30 tabs 03/12/24 Un known Rx carbidopa 25 mg-levodopa 100 mg 2 tab PO TID #180 tabs 04/05/24 Un known Rx tablet (Sinemet) fludrocortisone 0.1 mg tablet 0.1 mg PO QAM #30 tabs 04/05/24 Un known Rx diazepam 5 mg tablet 2.5 mg (1/2 x 5 mg) PO BID PRN Unknown Rx anxiety #30 tabs venlafaxine 150 mg 150 mg PO QAM 90 days #90 caps Unknown Rx capsule,extended release 24 hr venlafaxine 75 mg capsule,extended 75 mg PO QHS 90 days #90 caps Unknown Rx release 24 hr Allergy/AdvReac Type Severity Reaction Status Date / Time Lqdexwr-JGF-NbF Reductase AdvReac Intermediate Nausea Verified 08/20/24 12:10 Inhibitor (Chibzen-Iea-Efc Reductase Inhibitor) Family History Father Parkinson's disease Other Arthritis Blood Clots Depression Diabetes Surgical History History of inguinal hernia repair, bilateral Social History Smoking Status: Former smoker Tobacco: How many years used: 30 Electronic Cigarette Use: not used second hand exposure: Yes (Did smoke in the house ) alcohol intake: former substance use type: does not use shabana/mosque: Confucianist seatbelt use: always ROS ROS ED ROS Narrative Constitutional: Denies fevers, chills, headaches malaise, dizziness Eyes: Denies change in vision double vision blurry vision Cardiovascular: Denies chest pain or palpitations Respiratory: Complains of shortness of breath as noted above denies coughing wheezing Abdomen: Denies abdominal pain nausea vomit diarrhea : Denies urinary symptoms Neurological: Denies numbness, weakness, tingling Musculoskeletal: Denies back pain Skin: Denies rashes or lesions EXAM Physical Exam Narrative Exam Narrative: General: Patient lying in bed rest comfortably did not appear to be acute distress Head: Atraumatic, normocephalic Eyes: PERRL bilaterally, EOMI bilaterally, no conjunctival injection noted Neck: Soft, supple, trachea midline Cardiovascular: Regular rate and rhythm no murmurs gallops rubs noted Respiratory: Clear to auscultation bilaterally Abdomen: Soft, nondistended, nontender to palpation Extremities: +5/5 strength noted in the upper and lower extremities, radial pulse +2/4 in the bilateral extremities Neurological: Patient follow commands knew that he was at [facility] years 2024 Skin: Head, dry, tact no rashes or lesions noted Const Vital Signs: 08/20/24 12:10 08/20/24 12:44 08/20/24 13:11 Temperature 97.8 F Temperature Source Oral Pulse Rate 76 Respiratory Rate 14 Respiratory Effort Normal Respiratory Depth Normal Respiratory Pattern Normal Blood Pressure 164/85 H Blood Pressure Mean 111 Pulse Ox 100 Oxygen Delivery Method Room Air Room Air Room Air 08/20/24 14:10 [place] (more content not included)... Normal [facility] L499.0042on 08-20-2024 Trop T High Sen 29 ng/L High <=22 [facility] Comment on above: Result Comment: Hemo lysis present, Results??could be affected. ?? Performed By: #### L 499.0042 #### [facility] Laboratory [address] [place], [address] L499.0043on 08-20-2024 Trop T High Sen Normal <= [facility] Comment on above: Result Comment: Canc elled via OM: Order cancelled - Patient discharged Performed By: #### L 501.9910, L500.4050, L100.0500, L501.9520 #### [facility] Laboratory [address] [place], [address] L501.4021on 08-20-2024 Trop T High Sen 36 ng/L High <=22 [facility] Comment on above: Performed By: #### L 499.0042 #### [facility] Laboratory [address] [place], [address] L503.7505on 08-20-2024 Natriuretic peptide B (Bld) [Mass/Vol] 488 pg/mL Normal <=1800 [facility] Comment on above: Result Comment: Hear t Failure Unlikely: < 300 pg/mL Heart Failure Likely < 50 Years: > 450 pg/mL 50-75 Years: > 900 pg/mL >75 Years: > 1800 pg/mL Performed By: #### L 499.0042 #### [facility] Laboratory [address] [place], [address] Partial Thromboplast Timeon 08-20-2024 aPTT Coag (Bld) [Time] 28.6 s Normal 24.1-36.2 [facility] Comment on above: Performed By: #### L 503.7505, L100.0100, L500.2500, L501.4021, L300.4310, L300.3900 #### [facility] Laboratory [address] [place], [address] Prothrombin Time w/INRon INR Coag (PPP) [Relative time] 1.1 {INR} Normal [facility] Comment on above: Performed By: #### L 503.7505, L100.0100, L500.2500, L501.4021, L300.4310, L300.3900 #### [facility] Laboratory [address] [place], [address] PT Coag (PPP) [Time] 14.3 s Normal 11.7-14.9 [facility] Comment on above: Performed By: #### L 503.7505, L100.0100, L500.2500, L501.4021, L300.4310, L300.3900 #### [facility] Laboratory [address] [place], [address] Re-Evaluation - PT (1)on Re-Evaluation - PT (1) [facility] Physical Therapy [facility] [address] [place] [address] / REEVALUATION / MEDICARE RECERTIFICATION PHYSICAL THERAPY MR#: [id number] Acct: [id number] Name: NATO GUTIERREZ Rep #: [id number] : 1945 78 From: [facility] Referring Dr.: Dr. Woodrow Chappell MD Status:REG RCR Insurance: [facility] Re-Evaluation Intro: Dr. Woodrow Chappell MD, It has been my pleasure to treat NATO GUTIERREZ over the last 8 visits for PD. Please see the progress note below for an update on the physical therapy plan of care! Subjective Subjective: Pt fell yesterday falling down 2 garage steps. He missed the step and fell. He feels that he has made progress. He is not doing well today due to the fall yesterday. would like him to use a walker when therapist suggested it. She would also like HEP that she can do with him at home. Objective Objective/Function: Sit to stand: needs to use his arms to get out of the chair and had retro LOB once standing Standing opp arm and leg FGA 10 Gait: walks with short strides and decrease heel to toe holding onto his SBQC and even kicking his cane at times The pt was able to walk around the entire building using the rollator with normal stride length continuous steps without LOB or veering. He did not turn his head with gait. Plan Plan Plan: Add walking with the rollator turning his head, add walking BW with using bigger stride length, sit to stand to balance (he tends to have some retro LOB once standing) 2X/ week for 8-12 weeks for gait training, functional balance, postural exercises, dual tasking with HEP. Encouraged pt to use rollator or AD due to fall risk. Pt will bring his cane in next visit. Balance/Gait/Functiona l tests Balance/Special Test Scores Functional Gait Assessment Score: 10 % Disability: 66.6700 Lower Extremity Functional Score: 33 Goals Goals Goal 1:: I HEP Goal Time Frame: 8-12 Weeks Goal Progress: Progressing Goal 2:: Pt to improve balance (FGA 10 at eval. Did discuss the idea that he is at risk for falls and should use an AD) Goal Time Frame: 8-12 Weeks Goal 3:: Be able to walk with more upright posture, bigger strides and more heel to toe gait pattern Goal Time Frame: 8-12 Weeks Goal Progress: Progressing Goal 4:: Be able to complete X 10 on each side standing opp arm and leg to work on motor planning and dual tasking Goal Time Frame: 8-12 Weeks Anticipated Interventions Anticipated Interventions Patient/Client Instruction: Educate patient on: Condition and Plan of Care For the Purpose of:: To improve muscle performance and motor function, To improve ability to perform ADL's, To increase tolerance to activity/condition/pos ition, To improve performance and independence with ADL's, To decrease level of supervision to perform tasks, To improve ability of physical actions for home/community/work/le isure, To improve gait and locomotor functions, To improve health of tissue, To increase flexibility/ROM, To improve endurance, To improve balance and To improve safety with gait Therapeutic Exercise to Include: Strength training, Endurance training, Balance training, Coordination, Body mechanics, Postural training, Neuromotor development, Active ROM, Dynamic Lumbar Stabilization and Scapular Strength/Stabilization For the Purpose of:: To decrease pain, To increase ROM, To improve nutrient delivery to tissue, To increase oxygenation perfusion, To improve muscle performance and motor function, To improve ability to perform ADL's, To increase tolerance to activity/condition/pos ition, To improve performance and independence with ADL's, To decrease level of supervision to perform tasks, To improve ability of physical actions for home/community/work/le isure, To improve gait and locomotor functions, To improve health of tissue, To decrease soft tissue restriction, To increase flexibility/ROM, To improve endurance and To improve balance Functional Training to Include: Gait training For the Purpose of:: To improve gait and locomotor functions Re-Evaluation Ending Re-evaluation ending: Please do not hesitate to contact me at [phone] by phone or if you have questions or concerns regarding this new plan of care! Sincerely, Ni Robledo, JERI 07/25/24 3603 CC: Dr. Juarez Bledsoe MD; Dr. Woodrow Chappell MD Signed For Medicare only, by signing this I certify the plan of care. Physicians Signature Date Normal [facility] Inital Evaluation (1) - PTon 06-26-2024 Inital Evaluation (1) - PT [facility] Physical Therapy [facility] [address] [place] [address] / REHABILITATION SERVICES INITIAL EVALUATION MR#: [id number] Acct: [id number] Name: NATO GUTIERREZ Rep #: [id number] : 1945 78 From: Ni WIL[place] Referring Dr.: Dr. Woodrow Chappell MD Status: REG R Insurance: [facility] SELF PAY INSURANCE Patient's Visit Information Visit Information Visit Information: NATO GUTIERREZ is a 78 year old M referred to Physical Therapy by Dr. Woodrow Chappell MD with a diagnosis of PD. Date of Evaluation: 06/26/24 Physical Therapist: JERI Link Visit Plan Frequency: 2x /Week Duration: 3 Months Plan: 2X/ week for 8-12 weeks for gait training, functional balance, postural exercises, dual tasking with HEP. Encouraged pt to use rollator or AD due to fall risk. Pt will bring his cane in next visit. HEP: walk with more heel to toe gait pattern Subjective Subjective: Pt was dx with PD 2 years ago but he thinks that he has had it before then. He struggles with veering and some unsteadiness. He has fallen down a few times and a cane helps but africa sullivan does not use it often per his Lynn. She reports that a cane helps secure him from a fall. He has stairs and home but moved him to the downstairs because of the couple of falls. He struggles to get out of a chair and struggles to get out on first attempt. They have devices to help pull him up out of the bed and from sit to stand. They are trying to get the house together so he can stay home as long as he can. He struggles rolling over in bed and does not move around a lot at night. He struggles to get things up off the floor, car transfers, and he has bars up in the shower and he has to step and over tub base to get in the shower. Pt likes to watch TV. He does not exercise or go for walks. Pain L shoulder: Pain Intensity (Out of 10): 8 R hip pain: Pain Intensity (Out of 10): 6 Objective Objective: Gait: walks with shorter stride and decreased heel to toe gait pattern. No arm swing. Becomes unsteady if looks other than straight ahead. FW trunk. Occ catch toe if not reminded to walk with heel to toe gait pattern. Veering present with gait. Had pt use the rollator and he was able to walk with much greater step length and speed with less catching of his toe but I feel the arm rails were too short and caused him to lean to far into flexion with gait. LE MMT: R hip flex 4-/5 and L 4-/5 knee ext B 4/5 Knee flex B 4/5 Pt is able to heel and toe raise B with UE support Sit to stand: pt needed multiple cues on how to sit to stand and get weight FW. Once instructed in how to weight shift FW he was able to get up 3X in a row on first attempt using B hand rails Seated opp arm and leg X 8 on each side Standing opp arm and leg X 2 on each side and then reverts back to same side FGA 10 Balance/Special Test Scores Functional Gait Assessment Score: 10 % Disability: 66.6700 Lower Extremity Functional Score: 39 Goals Goal 1:: I HEP Goal Time Frame: 8-12 Weeks Goal 2:: Pt to improve balance (FGA 10 at al. Did discuss the idea that he is at risk for falls and should use an AD) Goal Time Frame: 8-12 Weeks Goal 3:: Be able to walk with more upright posture, bigger strides and more heel to toe gait pattern Goal Time Frame: 8-12 Weeks Goal 4:: Be able to complete X 10 on each side standing opp arm and leg to work on motor planning and dual tasking Goal Time Frame: 8-12 Weeks Rehabilitation Potential Rehabilitation Potential: Good Anticipated Interventions Patient/Client Instruction: Educate patient on: Condition and Plan of Care For the Purpose of:: To improve muscle performance and motor function, To improve ability to perform ADL's, To increase tolerance to activity/condition/pos ition, To improve performance and independence with ADL's, To decrease level of supervision to perform tasks, To improve ability of physical actions for home/community/work/le isure, To improve gait and locomotor functions, To improve health of tissue, To increase flexibility/ROM, To improve endurance, To improve balance and To improve safety with gait Therapeutic Exercise to Include: Strength training, Endurance training, Balance training, Coordination, Body mechanics, Postural training, Neuromotor development, Active ROM, Dynamic Lumbar Stabilization and Scapular Strength/Stabilization For the Purpose of:: To decrease pain, To increase ROM, To improve nutrient delivery to tissue, To increase oxygenation perfusion, To improve muscle performance and motor function, To improve ability to perform ADL's, To increase tolerance to activity/condition/pos ition, To improve performance and independence with ADL's, To decrease level of supervision to perform tasks, To improve ability of physical actions for home/community/work/le isure, To impr (more content not included)... Normal [facility] MR/BMS.BPon 06-19-2024 MR/BMS.BP [address], [address] [place] [address] OFFICE VISIT Date of Service: 06/19/24 MR#: [id number] Acct: [id number] Name: NATO GUTIERREZ Rep #: [id number] : 1945 Provider: Dr. Tommie Harris se, Age/Sex: 78/M Location: [facility].BP Status: Signed Intake Vital Signs 12/27/23 16:40 04/05/24 15:06 06/19/24 15:58 Height 5 ft 9 in 5 ft 9 in 5 ft 9 in BP 144/85 H Blood Pressure Location Lt brachial Position Sitting Respiration 16 Pulse 76 Pulse Source Monitor BP Intake Visit Reasons: 6mfu Accompanied by: Self Allergies Uslakbc-QRS-ReJ Reductase Inhibitor (Excqxoe-Yvh-Eel Reductase Inhibitor) Adverse Reaction (Intermediate, Verified 06/19/24 16:09) Nausea Medications ???Medication ???Instructions ???Recorded ???Confirmed ???Type apixaban 5 mg tablet 5 mg PO BID #74 tabs 07/25/1906/02 Rx tamsulosin 0.4 mg capsule 1 tab PO DAILY 07/25/19 06/19/24 H istory finasteride 5 mg tablet 5 mg PO DAILY 05/15/20 06/19/24 Hi story cholecalciferol (vitamin D3) 25 2,000 unit PO DAILY 05/19/2106/19 History mcg (1,000 unit) tablet metformin 500 mg tablet,extended 1,000 mg PO DAILY 04/13/22 5 History release 24 hr gabapentin 600 mg tablet 600 mg PO QHS #30 tabs 03/12/24 Rx carbidopa 25 mg-levodopa 100 mg 2 tab PO TID #180 tabs 04/05/24 Rx tablet (Sinemet) fludrocortisone 0.1 mg tablet 0.1 mg PO QAM #30 tabs 04/05/24 Rx diazepam 5 mg tablet 2.5 mg (1/2 x 5 mg) PO BID PRN 06/19/24 Rx anxiety #30 tabs venlafaxine 150 mg 150 mg PO QAM 90 days #90 caps 06/19/24 Rx capsule,extended release 24 hr venlafaxine 75 mg capsule,extended 75 mg PO QHS 90 days #90 caps 06/19/24 Rx release 24 hr Have you fallen in the past year?: No PFSH Medical History Fatigue Major depression single episode, in partial remission Depression DVT (deep venous thrombosis) Type 2 diabetes mellitus Hyperlipidemia Essential hypertension Surgical History History of inguinal hernia repair, bilateral Family History Father Parkinson's disease Other Arthritis Blood Clots Depression Diabetes Social History Smoking Status: Former smoker Tobacco: How many years used: 30 Electronic Cigarette Use: not used second hand exposure: Yes (Did smoke in the house ) alcohol intake: former substance use type: does not use shabana/mosque: Confucianist seatbelt use: always HPI History of Present Illness History provided by: patient HPI: Nato Gutierrez is a 78 year old male who presents today for follow up evaluation. Patient reports that his physical self has been "Not as good as it has been." Has been experiencing continuing fatigue and weakness. Denies any recent falls. Recently had carbidopa/levodopa increased in April, and is unsure how much benefit this has provided. Memory remains an intermittent concern for patient as well. Has some intermittent pain symptoms in feet. Sleep has been up and down. Can up to 7-8 hours or have nights where nearly no sleep at all. Generally doesn't take melatonin as he feels "ga-ga" the next day when taking. Appetite has been somewhat increased, and has stopped losing weight after having lost nearly 30 lbs. Kids were home this weekend which helps with his mood when they visit. Continues to take valium with good benefit; does take very infrequently. Similarly does feel like venlafaxine is helpful without major side effects. Able to largely complete ADLs at home. Review of Systems Constitutional Reports: fatigue; Denies: fever(s), chills or change in weight Eyes Denies: change in vision or blurry vision Ears, Nose, Mouth, Throat Denies: throat pain, neck pain or change in hearing Cardiovascular Denies: chest pain, palpitations or dyspnea Respiratory Denies: dyspnea, cough or wheezing Gastrointestinal Denies: abdominal pain, nausea, vomiting, diarrhea or constipation Genitourinary Denies: dysuria or urinary frequency Musculoskeletal Denies: back pain, neck pain, joint pain or muscle weakness Integumentary/Breast Denies: rash or new lesions Neurological Reports: weakness in extremities, lack of coordination, dizziness (today, first in prolonged period) and other (shuffling gate per report); Denies: headache(s) or confusion Endocrine Reports: fatigue; Denies: excessive sweating Hematologic/Lymphatic Denies: easy bruising or easy bleeding Allergic/Immunologic Denies: wheezing Exam Mental Status Exam - Psych Appearance thin and cachectic Attitude cooperative A (more content not included)... Normal [facility] Neurology Visit Reporton Neurology Visit Report [facility] [address], [address] [place], [place] [address] OFFICE VISIT Date of Service: 04/05/24 MR#: [id number] Acct: [id number] Name: NATO GUTIERREZ Rep #: [id number] : 1945 Provider: Dr. Woodrow bernard MD Age/Sex: 78/M Location: [facility]. Status: Signed with Addenda ADDENDUM by Dr. Woodrow Chappell MD on 07/11/24 at 1641 Addendum Addendum (07/11/2024): In the addendum dated 06/21/2024, change physical order to physical therapy order. 07/11/24 1641 Date Woodrow Chappell MD cc: * Signed ADDENDUM by Dr. Woodrow Chappell MD on 06/21/24 at 1608 Addendum Addendum (06/21/2024): A physical order will be placed for the patient to then be able to participate in the Parkinson's disease class at [facility]. 06/21/24 1608 Date Woodrow Chappell MD cc: * Signed [facility] Chief Complaint: Details: Interim History: Nato returns for follow-up visit. He has a history of diabetes mellitus, lower extremity DVT (left 2013, 2019; right 2016), GERD, depression, anxiety, insomnia, cluster headaches (from age 13- 48 years old), low back pain with right-sided sciatica and hyperlipidemia. He has had slowing and shuffling of his gait and some postural instability as well as a bilateral upper extremity tremor. He has had improvement of his mobility following initiation of carbidopa/levodopa. He is taking carbidopa/levodopa 25/100 tablets 2 tablets every morning, 2 tablets every midday and 1 tablet every evening and this has been of benefit and has been well-tolerated (two tablets 3 times daily was not well-tolerated due to gastrointestinal side effects and sleep disturbance). His gait initially improved slightly but remains mild to moderately slow and has slowed further within recent months. He has an intermittent tremor that at times interferes with handwriting. He has mild cognitive deficits. He reports having word finding difficulty. He remains independent in his daily activities. He also has sensory loss in the feet and has a burning sensation in the feet. Gabapentin 600 mg nightly has been of moderate benefit for his lower extremity neuropathic pain. A brief trial of discontinuing gabapentin resulted in worsening of his neuropathic pain in the feet and gabapentin was resumed. Alpha lipoic acid was not of benefit for his neuropathic pain. He he has had fatigue; this had diminished. A B12 injection was not of clear benefit for his fatigue. He has had a reduction of his lightheadedness with the use of fludrocortisone 0.1 mg. He has had mild to moderate edema in the lower extremities. He had a reduction of his lower extremity edema with the use of compression stockings. He has a history of vitamin D insufficiency. He takes an esxp-yvm-gkqrkmi vitamin D supplement daily. Prior use of trazodone was not well-tolerated. He previously used melatonin for insomnia. He is not having significant insomnia presently. His ABIs do not reveal any significant large vessel disease; digital-brachial indices could not be determined on either side due to the non-compressibility of the vasculature at ankle level bilaterally; there is evidence of arterial calcification at digital level bilaterally, which precludes quantification of arterial flow. He has urinary frequency. DDAVP was of benefit however he subsequently developed renal insufficiency. DDAVP was discontinued and his renal function has returned to his baseline. Physical Exam: Neuro: The patient is awake and alert and responds appropriately; speech is fluent; rigidity is noted in the wrists (minimal on the right and moderate on the left; gait is slow and slightly unsteady Neck: No bruits Heart: Regular rate and rhythm Supplemental Info Venous Doppler study (07/25/2019): Acute deep vein thrombosis is noted in the left femoral vein. Acute deep vein thrombosis is noted in the left tibio-peroneal trunk. Acute deep vein thrombosis is noted in the left posterior tibial vein. Acute deep vein thrombosis is noted in the left peroneal vein. Acute deep vein thrombosis is noted in the left gastrocnemius vein. Acute deep vein thrombosis is noted in the left soleus vein. The left common femoral vein and popliteal vein are patent, compressible, and competent. Acute superficial thrombophlebitis is noted involving the left great saphenous vein in the left groin. TEVIN (10/29/2019): Triphasic Doppler waveforms are noted at ankle level bilaterally. Resting ankle-brachial indices are normal bilaterally. The patient ambulated for 3 minutes on a treadmill at 1.8 MPH and a 5% grade, following which ankle pressures augmented bilaterally, which is a normal physiological response. There is no evidence of significant arterial occlusive disease in the lower extremities bilaterally. (more content not included)... Normal [facility] Basic Metabolic Profile (BMP )on 03-29-2024 BUN/CRE 23.3 RATIO High 10-20 [facility] Comment on above: Performed By: #### L 500.2500 #### [facility] [address] [place], [address] CA,Total 9.5 mg/dL Normal 8.5-10.1 [facility] Comment on above: Performed By: #### L 500.2500 #### [facility] [address] [place], [address] Chloride [Moles/Vol] 109 mmol/L High 98-107 [facility] Comment on above: Performed By: #### L 500.2500 #### [facility] [address] [place], [address] CO2 [Moles/Vol] 30.0 mmol/L Normal 21.0-32.0 [facility] Comment on above: Performed By: #### L 500.2500 #### [facility] [address] [place], [address] Creatinine [Mass/Vol] 1.29 mg/dL Normal 0.70-1.30 [facility] Comment on above: Result Comment: The validity of the calculated GFR GFRAA in patients over 70 years has not been determined. Clinical correlation is essential. Performed By: #### L 500.2500 #### [facility] [address] [place], [address] EST GFR - AA 69 mL/min Normal >60 [facility] Comment on above: Result Comment: Afri can [place] GFR Calc Performed By: #### L 500.2500 #### [facility] [address] [place], [address] GAP 5 Normal 5-15 [facility] Comment on above: Performed By: #### L 500.2500 #### [facility] [address] [place], [address] GFR/1.73 sq M.predicted among non-blacks MDRD (S/P/Bld) [Vol rate/Area] 57 mL/min/{1.73_m2} Low >60 [facility] Comment on above: Result Comment: Non- GFR Calc Performed By: #### L 500.2500 #### [facility] [address] [place], [address] Glucose [Mass/Vol] 170 mg/dL High 74-106 [facility] Comment on above: Result Comment: Fast ing Glucose result greater than or equal to 126 mg/dL suggests DIABETES MELLITUS per A.D.A. criteria. Performed By: #### L 500.2500 #### [facility] [address] [place], [address] Potassium [Moles/Vol] 4.3 mmol/L Normal 3.5-5.1 [facility] Comment on above: Performed By: #### L 500.2500 #### [facility] [address] [place], [address] Sodium [Moles/Vol] 143 mmol/L Normal 136-145 [facility] Comment on above: Performed By: #### L 500.2500 #### [facility] [address] [place], [address] Urea nitrogen [Mass/Vol] 30 mg/dL High 7-18 [facility] Comment on above: Performed By: #### L 500.2500 #### [facility] [address] [place], [address] Basic Metabolic Profile (BMP )on 03-08-2024 BUN/CRE 21.5 RATIO High 10-20 [facility] Comment on above: Performed By: #### L 501.9910, L500.4050, L100.0500, L501.9520 #### [facility] [address] [place], [address] CA,Total 9.5 mg/dL Normal 8.5-10.1 [facility] Comment on above: Performed By: #### L 501.9910, L500.4050, L100.0500, L501.9520 #### [facility] [address] [place], [address] Chloride [Moles/Vol] 106 mmol/L Normal 98-107 [facility] Comment on above: Performed By: #### L 501.9910, L500.4050, L100.0500, L501.9520 #### [facility] [address] [place], [address] CO2 [Moles/Vol] 29.0 mmol/L Normal 21.0-32.0 [facility] Comment on above: Performed By: #### L 501.9910, L500.4050, L100.0500, L501.9520 #### [facility] [address] [place], [address] Creatinine [Mass/Vol] 1.35 mg/dL High 0.70-1.30 [facility] Comment on above: Result Comment: The validity of the calculated GFR GFRAA in patients over 70 years has not been determined. Clinical correlation is essential. Performed By: #### L 501.9910, L500.4050, L100.0500, L501.9520 #### [facility] [address] [place], [address] EST GFR - AA 65 mL/min Normal >60 [facility] Comment on above: Result Comment: Afri can [place] GFR Calc Performed By: #### L 501.9910, L500.4050, L100.0500, L501.9520 #### [facility] [address] [place], [address] GAP 7 Normal 5-15 [facility] Comment on above: Performed By: #### L 501.9910, L500.4050, L100.0500, L501.9520 #### [facility] [address] [place], [address] GFR/1.73 sq M.predicted among non-blacks MDRD (S/P/Bld) [Vol rate/Area] 54 mL/min/{1.73_m2} Low >60 [facility] Comment on above: Result Comment: Non- GFR Calc Performed By: #### L 501.9910, L500.4050, L100.0500, L501.9520 #### [facility] [address] [place], [address] Glucose [Mass/Vol] 173 mg/dL High 74-106 [facility] Comment on above: Result Comment: Fast ing Glucose result greater than or equal to 126 mg/dL suggests DIABETES MELLITUS per A.D.A. criteria. Performed By: #### L 501.9910, L500.4050, L100.0500, L501.9520 #### [facility] [address] [place], [address] Potassium [Moles/Vol] 4.0 mmol/L Normal 3.5-5.1 [facility] Comment on above: Performed By: #### L 501.9910, L500.4050, L100.0500, L501.9520 #### [facility] [address] [place], [address] Sodium [Moles/Vol] 142 mmol/L Normal 136-145 [facility] Comment on above: Performed By: #### L 501.9910, L500.4050, L100.0500, L501.9520 #### [facility] [address] [place], [address] Urea nitrogen [Mass/Vol] 29 mg/dL High 7-18 [facility] Comment on above: Performed By: #### L 501.9910, L500.4050, L100.0500, L501.9520 #### [facility] [address] [place], [address] CBC-Complete Blood Cnt No Di ffon 02-27-2024 Erythrocyte distribution width (RBC) [Ratio] 13.8 % Normal 11.6-14.6 [facility] Comment on above: Performed By: #### L 501.9910, L500.4050, L100.0500, L501.9520 #### [facility] [address] [place], [address] Hematocrit (Bld) [Volume fraction] 49.8 % Normal 40-54 [facility] Comment on above: Performed By: #### L 501.9910, L500.4050, L100.0500, L501.9520 #### [facility] [address] [place], [address] Hemoglobin (Bld) [Mass/Vol] 15.8 g/dL Normal 13.0-16.5 [facility] Comment on above: Performed By: #### L 501.9910, L500.4050, L100.0500, L501.9520 #### [facility] [address] [place], [address] MCH (RBC) [Entitic mass] 28.9 pg Normal 27.0-32.0 [facility] Comment on above: Performed By: #### L 501.9910, L500.4050, L100.0500, L501.9520 #### [facility] [address] [place], [address] MCHC (RBC) [Mass/Vol] 31.7 g/dL Low 32-36 [facility] Comment on above: Performed By: #### L 501.9910, L500.4050, L100.0500, L501.9520 #### [facility] [address] [place], [address] MCV (RBC) [Entitic vol] 91.0 fL Normal 80-94 [facility] Comment on above: Performed By: #### L 501.9910, L500.4050, L100.0500, L501.9520 #### [facility] [address] [place], [address] Platelet mean volume (Bld) [Entitic vol] 10.7 fL Normal 6.2-12.0 [facility] Comment on above: Performed By: #### L 501.9910, L500.4050, L100.0500, L501.9520 #### [facility] [address] [place], [address] Platelets (Bld) [#/Vol] 204 10*3/uL Normal 150-450 [facility] Comment on above: Performed By: #### L 501.9910, L500.4050, L100.0500, L501.9520 #### [facility] [address] [place], [address] RBC (Bld) [#/Vol] 5.47 10*6/uL Normal 4.6-6.2 [facility] Comment on above: Performed By: #### L 501.9910, L500.4050, L100.0500, L501.9520 #### [facility] [address] [place], [address] RDW SD 46.4 fl High 35.1-43.9 [facility] Comment on above: Performed By: #### L 501.9910, L500.4050, L100.0500, L501.9520 #### [facility] [address] [place], [address] WBC (Bld) [#/Vol] 9.5 10*3/uL Normal 4.4-11.0 [facility] Comment on above: Performed By: #### L 501.9910, L500.4050, L100.0500, L501.9520 #### [facility] [address] [place], [address] Comprehensive Metabolic [facility] [facility] Albumin [Mass/Vol] 3.8 g/dL Normal 3.2-5.0 [facility] Comment on above: Performed By: #### L 501.9910, L500.4050, L100.0500, L501.9520 #### [facility] [address] [place], [address] Albumin/Globulin [Mass ratio] 1.2 {ratio} Normal 0.9-2.4 [facility] Comment on above: Performed By: #### L 501.9910, L500.4050, L100.0500, L501.9520 #### [facility] [address] [place], [address] ALK P 98 U/L Normal 45-117 [facility] Comment on above: Performed By: #### L 501.9910, L500.4050, L100.0500, L501.9520 #### [facility] [address] [place], [address] ALT [Catalytic activity/Vol] 17 U/L Normal 16-61 [facility] Comment on above: Performed By: #### L 501.9910, L500.4050, L100.0500, L501.9520 #### [facility] [address] [place], [address] AST [Catalytic activity/Vol] 10 U/L Low 15-37 [facility] Comment on above: Performed By: #### L 501.9910, L500.4050, L100.0500, L501.9520 #### [facility] [address] [place], [address] Bilirubin [Mass/Vol] 0.70 mg/dL Normal 0.20-1.00 [facility] Comment on above: Result Comment: For patients on eltrombopag therapy, use of Dimension [place] TBIL is not recommended. Performed By: #### L 501.9910, L500.4050, L100.0500, L501.9520 #### [facility] [address] [place], [address] BUN/CRE 15.9 RATIO Normal 10-20 [facility] Comment on above: Performed By: #### L 501.9910, L500.4050, L100.0500, L501.9520 #### [facility] [address] [place], [address] CA,Total 9.1 mg/dL Normal 8.5-10.1 [facility] Comment on above: Performed By: #### L 501.9910, L500.4050, L100.0500, L501.9520 #### [facility] [address] [place], [address] Chloride [Moles/Vol] 110 mmol/L High 98-107 [facility] Comment on above: Performed By: #### L 501.9910, L500.4050, L100.0500, L501.9520 #### [facility] [address] [place], [address] CO2 [Moles/Vol] 30.0 mmol/L Normal 21.0-32.0 [facility] Comment on above: Performed By: #### L 501.9910, L500.4050, L100.0500, L501.9520 #### [facility] [address] [place], [address] Creatinine [Mass/Vol] 1.82 mg/dL High 0.70-1.30 [facility] Comment on above: Result Comment: The validity of the calculated GFR GFRAA in patients over 70 years has not been determined. Clinical correlation is essential. Performed By: #### L 501.9910, L500.4050, L100.0500, L501.9520 #### [facility] [address] [place], [address] EST GFR - AA 46 mL/min Low >60 [facility] Comment on above: Result Comment: Afri can [place] GFR Calc Performed By: #### L 501.9910, L500.4050, L100.0500, L501.9520 #### [facility] [address] [place], [address] GAP 4 Low 5-15 [facility] Comment on above: Performed By: #### L 501.9910, L500.4050, L100.0500, L501.9520 #### [facility] [address] [place], [address] GFR/1.73 sq M.predicted among non-blacks MDRD (S/P/Bld) [Vol rate/Area] 38 mL/min/{1.73_m2} Low >60 [facility] Comment on above: Result Comment: Non- GFR Calc Performed By: #### L 501.9910, L500.4050, L100.0500, L501.9520 #### [facility] [address] [place], [address] Globulin (S) [Mass/Vol] 3.2 g/dL Normal 2.2-4.2 [facility] Comment on above: Performed By: #### L 501.9910, L500.4050, L100.0500, L501.9520 #### [facility] [address] [place], [address] Glucose [Mass/Vol] 116 mg/dL High 74-106 [facility] Comment on above: Result Comment: Fast ing Glucose result from 100 to 125 mg/dL suggests IMPAIRED HOMEOSTASIS per A.D.A. criteria. Performed By: #### L 501.9910, L500.4050, L100.0500, L501.9520 #### [facility] [address] [place], [address] Potassium [Moles/Vol] 4.2 mmol/L Normal 3.5-5.1 [facility] Comment on above: Performed By: #### L 501.9910, L500.4050, L100.0500, L501.9520 #### [facility] [address] [place], [address] Sodium [Moles/Vol] 144 mmol/L Normal 136-145 [facility] Comment on above: Performed By: #### L 501.9910, L500.4050, L100.0500, L501.9520 #### [facility] [address] [place], [address] T PROT 7.0 g/dL Normal 6.4-8.2 [facility] Comment on above: Performed By: #### L 501.9910, L500.4050, L100.0500, L501.9520 #### [facility] [address] [place], [address] Urea nitrogen [Mass/Vol] 29 mg/dL High 7-18 [facility] Comment on above: Performed By: #### L 501.9910, L500.4050, L100.0500, L501.9520 #### [facility] [address] [place], [address] Neurology Visit Report Neurology Visit Report [facility] [address] [place] [address], [address] [place] [address] OFFICE VISIT Date of Service: 02/27/24 MR#: [id number] Acct: [id number] Name: NATO GUTIERREZ Rep #: [id number] : 1945 Provider: Dr. Woodrow bernard MD Age/Sex: 78/M Location: [facility] Status: Signed with Addenda ADDENDUM by Dr. Woodrow Chappell MD on 03/05/24 at 1045 Addendum Addendum (03/05/2024): CBC, TSH, CMP, PSA (02/29/2024): BUN 29 (high), creatinine 1.82 (high), EGFR 38 (low), glucose 116 (high), TSH 4.47 (high) I spoke with the patient by phone today. DDAVP will be discontinued. A BMP will be checked in 2 days to reassess his renal function. His TSH will be rechecked in the future. 03/05/24 1045 Date Woodrow Chappell MD cc: * Signed ADDENDUM by Dr. Woodrow Chappell MD on 03/03/24 at 1218 HPI Details: NATO GUTIERREZ, is a 78 M who presents to the office today for Assessment and Plan Assessment and Plan (1) Parkinson's disease: Status: Chronic Qualifiers: Dyskinesia presence: unspecified whether dyskinesia Fluctuating manifestations: with fluctuating manifestations Qualified Code(s): G20.A2 - Parkinson's disease without dyskinesia, with fluctuations (2) Urinary frequency: Status: Acute (3) Shy-Drager syndrome: Status: Chronic (4) Polyneuropathy: Status: Chronic Orders: Orders Comprehensive Metabolic Profil 02/27/24 G20.A2 - Parkinson's disease without dyskinesia, with fluctuations CBC-Complete Blood Cnt No Diff 02/27/24 G62.9 - Polyneuropathy, unspecified PSA,Total - Annual Screen 02/27/24 R35.0 - Frequency of micturition Thyroid Stim Hormone (TSH) 02/27/24 Z86.39 - Personal history of other endocrine, nutritional and metabolic disease Medications: Changed From carbidopa-levodopa 25-100 mg (Sinemet) Take 2 tablets orally every morning, 1 tablet every midday and 1 tablet every evening 120 tabs 5RF To carbidopa-levodopa 25-100 mg (Sinemet) Take 2 tablets orally every morning, 2 tablets every midday and 1 tablet every evening 150 tabs 2RF From fludrocortisone Take 1 tablet orally in the morning 6 days per week (Mon, Tue, Wed, Macey, Fri, Sat) 27 tabs 6RF To fludrocortisone 0.1 mg PO QAM 30 tabs 2RF Discontinued gabapentin Discontinued Reason: Discontinued by PCP/other physicians 600 mg PO QHS 30 tabs 4RF desmopressin (DDAVP) Discontinued Reason: Discontinued by PCP/other physicians 0.1 mg PO BID 60 tabs 6RF Addendum Addendum (03/03/24): Correction: Patient follow-up is scheduled for 3 weeks. 03/03/24 1218 Date Woodrow Chappell MD cc: * Signed HPI HPI Chief Complaint: Details: Interim History: Nato returns for follow-up visit. He has a history of diabetes mellitus, lower extremity DVT (left 2013, 2019; right 2016), GERD, depression, anxiety, insomnia, cluster headaches (from age 13- 48 years old), low back pain with right-sided sciatica and hyperlipidemia. He has had slowing and shuffling of his gait and some postural instability as well as a bilateral upper extremity tremor. He has had improvement of his mobility following initiation of carbidopa/levodopa. He is taking carbidopa/levodopa 25/100 tablets every morning and 1 tablet twice daily (two tablets 3 times daily was not well-tolerated due to gastrointestinal side effects and sleep disturbance). His gait initially improved slightly but remains mild to moderately slow and has slowed further within recent months. He has an intermittent tremor that at times interferes with handwriting. He has mild cognitive deficits. He denies having recent change in his cognitive function. He remains independent in his daily activities. He also has sensory loss in the feet and has a burning sensation in the feet. Gabapentin 600 mg nightly has been of moderate benefit for his lower extremity neuropathic pain. Alpha lipoic acid was not of benefit for his neuropathic pain. He has fatigue; this diminished. A B12 injection was not of clear benefit for his fatigue. He has had a reduction of his lightheadedness with the use of fludrocortisone 0.1 mg to 1 tablet daily 6 days per week; a daily dose caused hypertension. He has had mild to moderate edema in the lower extremities. He had a reduction of his lower extremity edema with the use of compression stockings. He has a history of vitamin D insufficiency. He takes an [id number] vitamin D supplement daily. Prior use of trazodone was not well-tolerated. He previously used melatonin for insomnia. He is not having significant insomnia presently. His ABIs do not reveal any significant large vessel disease; digital-brachial indices could not be determined on either side due to the non-compressibility of the vasculature at ankle level bilaterally; there is e (more content not included)... Normal [facility] PSA,Total - Annual Screenon 02-27-2024 PSA,TOT SCREEN 0.26 ng/mL Normal 0.00-4.00 [facility] Comment on above: Result Comment: This test was performed using the TPSA assay method for the [employer] chemistry system. Values obtained with different assay methods cannot be used interchangably. When changing PSA assays in the course of monitoring a patient, additional sequential testing should be carried out to confirm baseline values. Performed By: #### L 501.9910, L500.4050, L100.0500, L501.9520 #### [facility] [address] [place], [place], [id number] Thyroid Stim Hormone (TSH)on 02-27-2024 TSH 4.470 uIU/mL High 0.358-3.740 [facility] Comment on above: Performed By: #### L 501.9910, L500.4050, L100.0500, L501.9520 #### [facility] [address] [place], [place], [id number] [facility] 10-04-2016 [facility] Letter TextDepartmen t of [address], [place] [address]Dstup: [phone]#[id number] [place] [address]Wact James,Unfortunately, we have missed reaching you by phone. We are writing to letyou know that our records indicate that you are due for your colonoscopy.Please call our office at [phone] to schedule apt with Carina Jin todiscuss a colonoscopy.Sincerely, DELMAR Riggins/Jacqueline Adamson LPN Normal [facility] Vital Signs Date Time Vital Sign Value Performing Clinician Richard tyler 04-13-2022 18:00-0500 Diastolic blood pressure 54 mm[Hg] Dr. Antonio Ward Work Phone: [facility] 04-13-2022 18:00-0500 Heart rate 80 /min Dr. Antonio Ward Work Phone: [facility] 04-13-2022 18:00-0500 Systolic blood pressure 78 mm[Hg] Dr. Antonio Ward Work Phone: [facility] 04-13-2022 15:44-0500 Body height 175.[address] Antonio Ward Work Phone: [facility] 04-13-2022 15:44-0500 Body mass index (BMI) [Ratio] 28 kg/m2 Dr. Antonio Ward Work Phone: [facility] 04-13-2022 15:44-0500 Body temperature 98.9 [degF] Dr. Antonio Ward Work Phone: [facility] 04-13-2022 15:44-0500 Body weight 86.[address] Antonio Ward Work Phone: [facility] 04-13-2022 15:44-0500 Respiratory rate 17 /min Dr. Antonio Ward Work Phone: [facility] 04-13-2022 15:44-0500 SaO2% (BldA) [Mass fraction] 94 % Dr. Antonio Ward Work Phone: [facility] 01-07-2022 16:26-0400 Diastolic blood pressure 70 mm[Hg] Dr. Antonio Ward Work Phone: [facility] 01-07-2022 16:26-0400 Heart rate 102 /min Dr. Antonio Ward Work Phone: [facility] 01-07-2022 16:26-0400 SaO2% (BldA) [Mass fraction] 98 % Dr. Antonio Ward Work Phone: [facility] 01-07-2022 16:26-0400 Systolic blood pressure 104 mm[Hg] Dr. Antonio Ward Work Phone: [facility] 01-07-2022 16:22-0400 Body mass index (BMI) [Ratio] 29.4 kg/m2 Dr. Antonio Ward Work Phone: [facility] 01-07-2022 16:22-0400 Body weight 90.[address] Antonio Ward Work Phone: [facility] Encounters Encounter Date Encounter Type Care Provider Facility Start: 01-24-2025 End: 01-24-2025 ambulatory Woodrow Chappell Facility:[facility] Start: 12-20-2024 End: 12-20-2024 ambulatory Tommie Nazario Facility:[facility] Start: 12-13-2024 End: 12-13-2024 ambulatory Juarez Bledsoe Facility:[facility] Start: 08-20-2024 End: 08-20-2024 Emergency department patient visit Wang Poon Facility:[facility] Start: 08-14-2024 End: 08-14-2024 ambulatory Juarez Bledsoe Facility:[facility] Start: 06-19-2024 End: 06-19-2024 ambulatory Juaerz Bledsoe Facility:[facility] Start: 04-05-2024 End: 04-05-2024 ambulatory Juarez Bledsoe Facility:[facility] Start: 03-29-2024 End: 03-29-2024 ambulatory Juarez Bledsoe Facility:[facility] Start: 03-08-2024 End: 03-08-2024 ambulatory Woodrow Chappell Facility:[facility] Start: 02-27-2024 End: 02-27-2024 ambulatory Juarez Bledsoe Facility:[facility] Start: 02-27-2024 End: 02-27-2024 ambulatory [facility] Facility:[facility] Start: 04-20-2022 End: 04-20-[address] Antonio Ward Work Phone: [facility] Work Phone: Start: 04-20-2022 End: 04-20-[address] Antonio Ward Work Phone: [facility] Start: 04-13-2022 End: 04-13-[address] Antonio Ward Work Phone: [facility] Start: 01-07-2022 End: 01-07-[address] Antonio Ward Work Phone: [facility] Plan of Treatment Date Care Activity Detail Author Complete blood count [facility] Lipid 1996 panel - Serum or Plasma [facility] Prostate specific antigen measurement [facility] Vitamin D, 1,25-dihydroxy measurement [facility] Immunizations Immunization Date Immunization Notes Care Provider Fa dave 07-03-2020 Covid (Pfizer) Dr. Antonio Ward Work Phone: [facility] 06-12-2020 Covid (Pfizer) Dr. Antonio Ward Work Phone: [facility] Payers Date Payer Category Payer Self-pay [id number] 2023 Private Health Insurance 101 [id number] Medicare MEDICARE PART A B [id number] Unknown [facility] P[facility] PLAN [id number] Unknown [id number] Unknown [id number] Unknown [id number] Unknown [id number] Unknown [id number] Unknown [id number] Unknown [id number] Unknown [id number] Unknown [id number] Unknown [id number] Unknown [id number] Social History Date Type Detail Facility Start: 04-13-2022 Tobacco smoking stat [facility] Unknown if ever smoked [facility] Start: 07-25-2019 None [facility] Start: 07-25-2019 Alone [facility] Start: 1945 Sex Assigned At Male W [facility] Evaluation note Note Date & Type Note Facility Evaluation note Diagnosis Onset Date Shy-Drager syndrome chronic Peripheral arterial disease acute Mild cognitive impairment [facility] Parkinson's disease chronic Polyneuropathy chronic Shy-Drager syndrome chronic [facility] Work Phone: Summary Purpose Family History No Family History Records Found Relationship Condition Age at Onset Recorded Date/T isabella Not Specified Unknown Diabetes mellitus Unknown Arthritis Unknown Depression Unknown father Parkinson's disease Unknown Advance Directives No Advanced Directives Records Found Advance Directive Response Recorded Date/ Time Living Will Yes April 02, 2 021 1:02pm Power of Import Dispatcher Yes April 02, 2021 1:02pm Chief Complaint and Reason for Visit Chief Complaint ORTHOSTATIC BP CHECK 4 M FU PAD Reason for Visit Shy-Drager syndrome Peripheral arterial disease Mild cognitive impairment Parkinson's disease Polyneuropathy Shy-Drager syndrome Additional Source Comments (unrecognized sect ion and content) No Status Records FoundNo Status Records Found INFORMATION SOURCE (unrecogn ized section and content) DATE CREATED AUTHOR 09/28/2017 [facility] DATE CREATED AUTHOR AUTHOR'S ORGANIZ ATION 02/03/2025 [facility] Care Teams (unrecognized sec tion and content) Team Status: Active Member Role Status Dates Dr. Elias Bledsoe MD Family Provider Active Dr. Elias Bledsoe MD Primary Care Provider Activ e Team Status: Inactive Member Role Status Dates Dr. Antonio Ward MD Primary Care Provider, Referring Provider Active Dr. Woodrow Chappell MD Attending Provider Active Team Status: Inactive Member Role Status Dates Dr. Woodrow Chappell MD Attending Provider, Referring Provider Active Dr. Elias Bledsoe MD Primary Care Provider Activ e Goals (unrecognized section and content) Goals may be documented in a n alternate section FOR RECORDS PERTAINING TO PATIENTS WHO ARE OR HAVE BEEN ENROLLED IN A CHEMICAL DEPENDENCY/SUBSTANCEABUSE PROGRAM, SOME INFORMATION MAY BE OMITTED. This clinical summary was aggregated from multiple sources. Caution should be exercised in using it in the provision of clinical care. This summary normalizes information from multiple sources, and as a consequence, information in this document may materially change the coding, format and clinical context of patient data. In addition, data may be omitted in some cases. CLINICAL DECISIONS SHOULD BE BASED ON THE PRIMARY CLINICAL RECORDS. [employer] provides no warranty or guarantee of the accuracy or completeness of information in this document.
[2025-02-26 19:56] LABS: Hematocrit 38.9 % (40-54); Hemoglobin 12.6 g/dL (13.0-16.5); Immature Granulocytes Count 0.030 X10^3/uL (0.0-0.0); Mean Corp Hgb Conc 32.4 g/dL (32-36); Mean Corpuscular Volume 90.7 fL (80-94); Mean Platelet Vol. 10.8 fl (6.2-12.0); NRBC Flagged by Analyzer 0 % (0-5); Platelet Count 162 K/mm3 (150-450); RBC Distribution Width CV 14.6 % (11.6-14.6); RBC Distribution Width SD 48.5 fl (35.1-43.9); Red Blood Count 4.29 M/mm3 (4.6-6.2); White Blood Count 8.3 K/mm3 (4.4-11.0)
[2025-02-26 20:00] VITALS: BP 112/63; BP 113/69; BP 154/100; PULSE 64; PULSE 67; PULSE 94
[2025-02-26 20:18] LABS: Anion Gap 13 (5-15); BUN 63 mg/dL (4-19); BUN/Creat Ratio 33.0 RATIO (10-20); Calcium,Total 9.2 mg/dL (7.6-11.0); Carbon Dioxide 24.1 mmol/L (21.0-32.0); Chloride 104 mmol/L (98-108); Estimated Creatinine Clearance 30.33 ml/min (50-250); Glucose 185 mg/dL (70-99); Potassium 4.5 mmol/L (3.3-5.1)
[2025-02-26 20:21] LABS: Troponin T High Sensitivity 28 ng/L (<=22)
[2025-02-26 21:00] VITALS: BP 124/60; PULSE 64; RESP 18; O2SAT 98
[2025-02-26 21:47] LABS: Mucous, Urine 0 SEEN /hpf (<or=2+)
[2025-02-26 21:56] LABS: Color, Urine Yellow (Yellow); Glucose, Dipstick Normal (Normal); Ketone-Dipstick Negative (Negative); Leukocyte Esterase-Dipstick 500 /ul (Negative); Nitrite-Dipstick Negative (Negative); Occult Blood-Urine 25 /ul (Negative); Protein-Dipstick 30 mg/dl (Negative); Specific Gravity, Urine 1.010 (1.002-1.030); Urine Bilirubin Dipstick Negative (Negative)
[2025-02-26 22:45] VITALS: BP 128/74; PULSE 70; RESP 18; O2SAT 96
[2025-02-26 22:46] LABS: Red Blood Cells-Urine 0-5 SEEN /hpf (0-5)
[2025-02-26 22:47] LABS: Squamous Epithelial Cells - UA 0-5 SEEN /hpf (0-5)
[2025-02-26 23:10] LABS: Troponin T High Sens 2 HR 27 ng/L (<=22)
[2025-02-26 23:21] VITALS: BP 131/72; PULSE 65; RESP 18; TEMP 36.6; O2SAT 98
== END 2025-02-26 23:38 | disposition home or self-care (01) ==
PROVIDERS: Emergency Provider Emergency Medicine; PCP Family Medicine; Visit Provider Emergency Medicine
DX: R55 Syncope and collapse (principal); G20.C Parkinsonism, unspecified; F02.80 Dementia in other diseases classified elsewhere, unspecified severity, without behavioral disturbance, psychotic disturbance, mood disturbance, and anxiety; N39.0 Urinary tract infection, site not specified; Z87.891 Personal history of nicotine dependence; Z86.718 Personal history of other venous thrombosis and embolism
CPT/HCPCS: 71045; 80048; 81001; 84484; 85025; 87077; 87086; 87088; 87186; 93005; 96360; 96361; 99285; A4216